=== PATIENT | male | born 1945 | race Caucasian/White ===

== ENCOUNTER 2018-09-05 11:19 | Inpatient (IN) | payer MEDICARE, MEDICAID ==
[2018-09-05 13:49] LABS: BASO % 0.4 % (0.0-2.0); EOS % 0.3 % (0.0-4.0); HEMOGLOBIN 13.4 g/dL (12.0-18.0); LYMPH # 0.9 K/uL (1.0-4.3); LYMPH % 14.6 % (20.0-40.0); MEAN CELL VOLUME 90.9 fL (80.0-94.0); MEAN CORPUSCULAR HEMOGLOBIN 31.3 pg (27.0-31.0); MEAN CORPUSCULAR HGB CONC 34.5 g/dL (33.0-37.0); MEAN PLATELET VOLUME 8.5 fL (7.2-11.7); MONO # 0.3 K/uL (0.0-0.8); MONO % 4.3 % (0.0-10.0); NEUT # 4.7 K/uL (1.8-7.0); NEUT % 80.4 % (50.0-75.0); NRBC % 0.1 % (0.0-2.0); RBC 4.28 Mil/uL (4.40-5.90); RED CELL DISTRIBUTION WIDTH 13.8 % (11.5-14.5); WHITE BLOOD COUNT 5.9 K/uL (4.8-10.8)
[2018-09-05 13:51] LABS: SQUAMOUS EPITHIAL < 1 /hpf (0-5); URINE BACTERIA RARE (<OCC); URINE BILIRUBIN NEGATIVE (NEGATIVE); URINE BLOOD 1+ (NEGATIVE); URINE CLARITY Clear (Clear); URINE COLOR Yellow (YELLOW); URINE GLUCOSE (UA) NORMAL (Normal); URINE LEUKOCYTE ESTERASE NEG Leu/uL (Negative); URINE PROTEIN NEGATIVE (NEGATIVE); URINE UROBILINOGEN NORMAL mg/dL (0.2-1.0)
[2018-09-05 13:57] LABS: INR 1.1
[2018-09-05 14:01] LABS: ALB/GLOB RATIO 1.2 (1.0-2.1); ALBUMIN 4.3 g/dL (3.5-5.0); ALT/SGPT 19 U/L (21-72); AST/SGOT 27 U/L (17-59); BLOOD UREA NITROGEN 18 mg/dL (9-20); CALCIUM 10.1 mg/dl (8.6-10.4); GFR NON-AFRICAN AMERICAN > 60; LIPASE 113 U/L (23-300)
--- NOTE | 2018-09-05 14:25 | CT ---
Date of service: 09/05/2018 PROCEDURE: CT HEAD WITHOUT CONTRAST. HISTORY: AMS COMPARISON: None available. TECHNIQUE: Axial computed tomography images were obtained through the head/brain without intravenous contrast. Radiation dose: Total exam DLP = 984.79 mGy-cm. This CT exam was performed using one or more of the following dose reduction techniques: Automated exposure control, adjustment of the mA and/or kV according to patient size, and/or use of iterative reconstruction technique. FINDINGS: Streak artifact obscures evaluation of the skull base. HEMORRHAGE: No intracranial hemorrhage. BRAIN: Diffuse atrophy with prominence of the ventricles and sulci noted. No mass effect or edema. Intracranial atherosclerosis. Bilateral basal ganglia calcifications. Scattered moderate to severe periventricular and subcortical white matter hypodensities, which are nonspecific, but often seen with chronic microvascular ischemic disease. Please note that MRI with diffusion imaging is more sensitive in the detection of acute ischemic event. VENTRICLES: No hydrocephalus. Cavum septum pellucidum, anatomic variant. CALVARIUM: Unremarkable. PARANASAL SINUSES: Unremarkable as visualized. No significant inflammatory changes. MASTOID AIR CELLS: Unremarkable as visualized. No inflammatory changes. OTHER FINDINGS: None. IMPRESSION: Generalized atrophy. Moderate to severe scattered nonspecific white matter changes.
--- NOTE | 2018-09-05 14:45 | RAD ---
Date of service: 09/05/2018 PROCEDURE: CHEST RADIOGRAPH, 1 VIEW HISTORY: AMS COMPARISON: None available. FINDINGS: LUNGS: The lungs are well inflated. There is confluent airspace disease in the right lower lobe. There is subsegmental atelectasis in the left lower lobe. PLEURA: No pneumothorax or pleural effusion. CARDIOVASCULAR: The heart is normal in size. No aortic atherosclerotic calcifications present. OSSEOUS STRUCTURES: Within normal limits for the patient's age. VISUALIZED UPPER ABDOMEN: Normal. OTHER FINDINGS: None. IMPRESSION: Confluent airspace disease in the right lower lobe could represent atelectasis/pneumonia.
[2018-09-05] MEDS ORDERED: cefTRIAXone IV 1 gm in Dextros 50 ML IV STA (15:02)
[2018-09-05] MEDS ORDERED: Azithromycin 500mg/250ML NS 500 MG/250 ML BAG IV STA (15:02)
--- NOTE | 2018-09-05 15:14 | CP.PCM.HP ---
History of Present Illness - History of Present Illness History of Present Illness: Medicine Note for Dr. Stephens's Service This is a 73 year old male with PMHx of Alzheimer's Dementia who is brought in by niece for change in mental status. As per niece, Celi, she was been taking care of her uncle since October 2017. Throughout this time, patient has become more altered, combative, aggressive, he would urinate and defecate on himself and smear it along garcia or on furniture. Both nieces Celina and Celi have tried to have him placed in a laborer marine terminal care facility but they have not been able to arrange placement. Patient has been more altered than usual which is why he was brought in. Patient is not oriented to person, place or time. Answered all ROS as negative. PMHx: As noted above PSHx: unknown Meds: Pending nilynn Patrick to bring medications All: NKDA SHx: Unknown FHx: Unknown PMD: Doctor in [place] Present on Admission - Present on Admission Any Indicators Present on Admission: No Past Patient History - Past Social History Smoking Status: Former Smoker - NEUROLOGICAL Hx Alzheimer's Disease: Yes Hx Dementia: Yes - GASTROINTESTINAL Hx Gastroesophageal Reflux: Yes - GENITOURINARY/GYNECOLOGICAL Hx Prostate Cancer: Yes - PSYCHIATRIC Hx Substance Use: No Meds Allergies/Adverse Reactions: Allergies Allergy/AdvReac Type Severity Reaction Status Date / Time No Known Allergies Allergy Verified 09/05/18 11:40 Physical Exam - Constitutional Appears: No Acute Distress - Head Exam Head Exam: ATRAUMATIC, NORMAL INSPECTION, NORMOCEPHALIC - Eye Exam Eye Exam: EOMI, Normal appearance, PERRL. absent: Nystagmus, Scleral icterus Pupil Exam: NORMAL ACCOMODATION - ENT Exam ENT Exam: Mucous Membranes Moist - Neck Exam Neck exam: Positive for: Normal Inspection - Respiratory Exam Respiratory Exam: Decreased Breath Sounds (RLL), NORMAL BREATHING PATTERN - Cardiovascular Exam Cardiovascular Exam: REGULAR RHYTHM, +S1, +S2. absent: Diastolic murmur, Systolic Murmur - GI/Abdominal Exam GI & Abdominal Exam: Normal Bowel Sounds, Soft. absent: Distended, Tenderness - Extremities Exam Extremities exam: Positive for: normal inspection, pedal pulses present. Negative for: pedal edema, tenderness - Neurological Exam Neurological exam: Alert, CN II-XII Intact - Psychiatric Exam Psychiatric exam: Normal Affect, Normal Mood - Skin Skin Exam: Dry, Intact, Normal Color, Warm Results - Vital Signs Recent Vital Signs: Last Vital Signs Temp 98.9 F 09/05/18 11:36 Pulse 63 09/05/18 11:36 Resp 20 09/05/18 11:36 BP 173/89 H 09/05/18 11:36 Pulse Ox 98 09/05/18 11:36 - Labs Result Diagrams: 09/05/18 13:45 09/05/18 13:45 Labs: Laboratory Results - last 24 hr 09/05/18 09/05/18 09/05/18 12:35 13:45 13:45 WBC 5.9 RBC 4.28 L Hgb 13.4 Hct 38.8 MCV 90.9 MCH 31.3 H MCHC 34.5 RDW 13.8 Plt Count 185 MPV 8.5 Neut % (Auto) 80.4 H Lymph % (Auto) 14.6 L [place] % (Auto) 4.3 Eos % (Auto) 0.3 Baso % (Auto) 0.4 Neut # (Auto) 4.7 Lymph # (Auto) 0.9 L [place] # (Auto) 0.3 Eos # (Auto) 0.0 Baso # (Auto) 0.0 PT 12.0 INR 1.1 APTT 35.0 H Sodium Potassium Chloride Carbon Dioxide Anion Gap BUN Creatinine Est GFR ( Amer) Est GFR (Non-Af Amer) POC Glucose (mg/dL) 110 Random Glucose Calcium Total Bilirubin AST ALT Alkaline Phosphatase Troponin I Total Protein Albumin Globulin Albumin/Globulin Ratio Lipase Urine Color Urine Clarity Urine pH Ur Specific [place] Urine Protein Urine Glucose (UA) Urine Ketones Urine Blood Urine Nitrate Urine Bilirubin Urine Urobilinogen Ur Leukocyte Esterase Urine WBC (Auto) Urine RBC (Auto) Ur Squamous Epith Cells Urine Bacteria 09/05/18 09/05/18 13:45 13:45 WBC RBC Hgb Hct MCV MCH MCHC RDW Plt Count MPV Neut % (Auto) Lymph % (Auto) [place] % (Auto) Eos % (Auto) Baso % (Auto) Neut # (Auto) Lymph # (Auto) [place] # (Auto) Eos # (Auto) Baso # (Auto) PT INR APTT Sodium 140 Potassium 3.9 Chloride 100 Carbon Dioxide 29 Anion Gap 14 BUN 18 Creatinine 0.6 L Est GFR ( Amer) > 60 Est GFR (Non-Af Amer) > 60 POC Glucose (mg/dL) Random Glucose 111 H Calcium 10.1 Total Bilirubin 0.6 AST 27 ALT 19 L Alkaline Phosphatase 51 Troponin I < 0.0120 Total Protein 7.9 Albumin 4.3 Globulin 3.7 Albumin/Globulin Ratio 1.2 Lipase 113 Urine Color Yellow Urine Clarity Clear Urine pH 6.0 Ur Specific [place] 1.018 Urine Protein Negative Urine Glucose (UA) Normal Urine Ketones Trace Urine Blood 1+ H Urine Nitrate Negative Urine Bilirubin Negative Urine Urobilinogen Normal Ur Leukocyte Esterase Neg Urine WBC (Auto) 1 Urine RBC (Auto) 9 H Ur Squamous Epith Cells < 1 Urine Bacteria Rare Assessment & Plan - Assessment and Plan (Free Text) Plan: Right Lower Lobe Pneumonia Imaging: - CXR: noted RLL PNA Management: - Blood and Urine cultures ordered - Procal, lactic acid, and rapid flu ordered - Rocephin and Azithromycin daily, Florastor BID Alzheimer's Dementia -- Patient seen by Neurologist in [place] - Started on medications (waiting for family to bring in medications) Acute AMS More than baseline, likely 2/2 to Pneumonia Imaging: - EKG: NSR 69 BPM, LVH, no ST changes, no AV block noted - Head CT: Generalized atrophy. Moderate to severe scattered nonspecific white matter changes. Prophylactic Measures - GI PPX: Protonix daily - DVT PPX: SCDs, Lovenox daily - PT/ OT - Case management for [employer] marine [employer] placement as family is unable to take care for patient any more Disposition: Abx course. Will speak with case management for [employer]orer marine terminal placement as family is unable to continue providing care for patient. Ayse Amaya Dr., DO, PGY2
--- NOTE | 2018-09-05 15:37 | C.PDOC ---
History Of Present Illness 73 y/o male,w/PMhx of Alzheimer's and dementia, presents to the ER for evaluation of dizziness and chest pain which has been present for the past 3 days. Patient is also complaining of some lower abdominal pain. As per niece, patient has been living with her since October 2017. She notes that patient has become more confused recently. She states that he tried to have bm in the sink and he tried to brush his teeth with toilet water. She reports that he has been "sticking his finger" into his rectum and he has been smearing his diapers across the wall. Denies having fever,chills, SOB nausea,vomiting, and diarrhea. Time Seen by Provider: 09/05/18 13:10 Chief Complaint (Nursing): Medical Clearance History Per: Patient, Family (niece) History/Exam Limitations: no limitations Onset/Duration Of Symptoms: Days Current Symptoms Are (Timing): Still Present Severity: Moderate Past Medical History Reviewed: Historical Data, Nursing Documentation, Vital Signs Vital Signs: Last Vital Signs Temp 98.9 F 09/05/18 11:36 Pulse 63 09/05/18 11:36 Resp 20 09/05/18 11:36 BP 173/89 H 09/05/18 11:36 Pulse Ox 98 09/05/18 11:36 Primary Care Provider: Non [facility] Provider, - Medical History PMH: Alzheimer's Disease, Dementia Surgical History: No Surg Hx Family History: States: No Known Family Hx - Social History Hx Alcohol Use: No Hx Substance Use: No - Immunization History Hx Tetanus Toxoid Vaccination: Yes Hx Influenza Vaccination: Yes Hx Pneumococcal Vaccination: Yes Review Of Systems Except As Marked, All Systems Reviewed And Found Negative. Constitutional: Negative for: Fever, Chills Cardiovascular: Positive for: Chest Pain Gastrointestinal: Positive for: Abdominal Pain. Negative for: Nausea, Vomiting, Diarrhea Neurological: Positive for: Dizziness. Negative for: Headache Physical Exam - Physical Exam Appears: Non-toxic, No Acute Distress, Confused (mildly confused), Other (awake,alert,orientedx3) Skin: Normal Color, Warm, Dry Head: Atraumatic, Normacephalic Eye(s): bilateral: Normal Inspection, PERRL, EOMI Nose: Normal Oral Mucosa: Moist Neck: Supple Chest: Symmetrical Cardiovascular: Rhythm Regular Respiratory: Normal Breath Sounds, No Rales, No Rhonchi, No Wheezing Gastrointestinal/Abdominal: Soft, Tenderness (mild diffuse tenderness to deep palpation), No Guarding, No Rebound Neurological/Psych: Oriented x3, Normal Speech, Other (pt is mildly confused) ED Course And Treatment - Laboratory Results Result Diagrams: 09/12/18 07:43 09/12/18 07:43 Lab Results: PT 12.0 SECONDS (9.7-12.2) 09/05/18 13:45 INR 1.1 09/05/18 13:45 APTT 35.0 SECONDS (21-34) H 09/05/18 13:45 Troponin I < 0.0120 ng/mL (0.00-0.120) 09/05/18 13:45 Total Bilirubin 0.6 mg/dL (0.2-1.3) 09/05/18 13:45 AST 27 U/L (17-59) 09/05/18 13:45 ALT 19 U/L (21-72) L 09/05/18 13:45 Alkaline Phosphatase 51 U/L (38-126) 09/05/18 13:45 Total Protein 7.9 g/dL (6.3-8.3) 09/05/18 13:45 Albumin 4.3 g/dL (3.5-5.0) 09/05/18 13:45 Globulin 3.7 gm/dL (2.2-3.9) 09/05/18 13:45 Albumin/Globulin Ratio 1.2 (1.0-2.1) 09/05/18 13:45 Lipase 113 U/L (23-300) 09/05/18 13:45 Urine Color Yellow (YELLOW) 09/05/18 13:45 Urine Clarity Clear (Clear) 09/05/18 13:45 Urine pH 6.0 (5.0-8.0) 09/05/18 13:45 Ur Specific [place] 1.018 (1.003-1.030) 09/05/18 13:45 Urine Protein Negative mg/dL (NEGATIVE) 09/05/18 13:45 Urine Glucose (UA) Normal mg/dL (Normal) 09/05/18 13:45 Urine Ketones Trace mg/dL (NEGATIVE) 09/05/18 13:45 Urine Blood 1+ (NEGATIVE) H 09/05/18 13:45 Urine Nitrate Negative (NEGATIVE) 09/05/18 13:45 Urine Bilirubin Negative (NEGATIVE) 09/05/18 13:45 Urine Urobilinogen Normal mg/dL (0.2-1.0) 09/05/18 13:45 Ur Leukocyte Esterase Neg [place]/uL (Negative) 09/05/18 13:45 Urine WBC (Auto) 1 /hpf (0-5) 09/05/18 13:45 Urine RBC (Auto) 9 /hpf (0-3) H 09/05/18 13:45 Ur Squamous Epith Cells < 1 /hpf (0-5) 09/05/18 13:45 Urine Bacteria Rare (<OCC) 09/05/18 13:45 ECG: Interpreted By Me, Viewed By Me ECG Rhythm: Sinus Rhythm Interpretation Of ECG: NSR with LVH and no ST elevations Rate From EC O2 Sat by Pulse Oximetry: 98 (RA) Pulse Ox Interpretation: Normal - Other Rad CXR X-Ray: Viewed By Me, Read By Radiologist Interpretation: Date of service: 09/05/2018. PROCEDURE: CHEST RADIOGRAPH, 1 VIEW. HISTORY: AMS. COMPARISON: None available. FINDINGS: LUNGS: The lungs are well inflated. There is confluent airspace disease in the right lower lobe. There is subsegmental atelectasis in the left lower lobe. PLEURA: No pneumothorax or pleural effusion. CARDIOVASCULAR: The heart is normal in size. No aortic atherosclerotic calcifications present. OSSEOUS STRUCTURES: Within normal limits for the patient's age. VISUALIZED UPPER ABDOMEN: Normal. OTHER FINDINGS: None. IMPRESSION: Confluent airspace disease in the right lower lobe could represent atelectasis/pneumonia. - CT Scan/US CT-Head Other Rad Studies (CT/US): Read By Radiologist, Radiology Report Reviewed CT/US Interpretation: Date of service: 09/05/2018. PROCEDURE: CT HEAD WITHOUT CONTRAST. HISTORY: AMS. COMPARISON: None available. TECHNIQUE: Axial computed tomography images were obtained through the head/brain without intravenous contrast. Radiation dose: Total exam DLP = 984.79 mGy-cm. This CT exam was performed using one or more of the following dose reduction techniques: Automated exposure control, adjustment of the mA and/or kV according to patient size, and/or use of iterative reconstruction technique. FINDINGS: Streak artifact obscures evaluation of the skull base. HEMORRHAGE: No intracranial hemorrhage. BRAIN: Diffuse atrophy with prominence of the ventricles and sulci noted. No mass effect or edema. Intracranial atherosclerosis. Bilateral basal ganglia calcifications. Scattered moderate to severe periventricular and subcortical white matter hypodensities, which are nonspecific, but often seen with chronic microvascular ischemic disease. Please note that MRI with diff usion imaging is more sensitive in the detection of acute ischemic event. VENTRICLES: No hydrocephalus. Cavum septum pellucidum, anatomic variant. CALVARIUM: Unremarkable. PARANASAL SINUSES: Unremarkable as visualized. No significant inflammatory changes. MASTOID AIR CELLS: Unremarkable as visualized. No inflammatory changes. OTHER FINDINGS: None. IMPRESSION: Generalized atrophy. Moderate to severe scattered nonspecific white matter changes. Medical Decision Making Medical Decision Making: Plan: --Labs --EKG --CXR --CT-Head --Urinalysis --Urine Culture --Blood Culture --Zithromax IV --Rocephin IV Updates: 15:50 Case discussed with . Patient will be admitted under the service of . Disposition - Disposition Disposition: HOSPITALIZED Disposition Time: 15:50 Condition: STABLE - POA Present On Arrival: None - Clinical Impression Clinical Impression: Dementia, Pneumonia - Scribe Statement The provider has reviewed the documentation as recorded by the Sepidehibe Juliana Crook Provider Attestation: All medical record entries made by the Scribe were at my direction and personally dictated by me. I have reviewed the chart and agree that the record accurately reflects my personal performance of the history, physical exam, medical decision making, and the department course for this patient. I have also personally directed, reviewed, and agree with the discharge instructions and disposition.
[2018-09-05] MEDS ORDERED: Azithromycin 500mg/250ML NS 500 MG/250 ML BAG IVPB ONE (16:51)
[2018-09-05] MEDS: Saccharomyces Boulardi 250 mg Cap PO SCH (18:40)
[2018-09-06 07:29] LABS: BASO % 0.3 % (0.0-2.0); EOS # 0.1 K/uL (0.0-0.7); HEMOGLOBIN 13.4 g/dL (12.0-18.0); LYMPH # 1.1 K/uL (1.0-4.3); LYMPH % 18.5 % (20.0-40.0); MEAN CELL VOLUME 91.3 fL (80.0-94.0); MEAN CORPUSCULAR HEMOGLOBIN 30.8 pg (27.0-31.0); MEAN CORPUSCULAR HGB CONC 33.8 g/dL (33.0-37.0); MEAN PLATELET VOLUME 8.4 fL (7.2-11.7); MONO # 0.3 K/uL (0.0-0.8); NEUT # 4.3 K/uL (1.8-7.0); NEUT % 74.2 % (50.0-75.0); NRBC % 0.1 % (0.0-2.0); RBC 4.35 Mil/uL (4.40-5.90); RED CELL DISTRIBUTION WIDTH 13.5 % (11.5-14.5); WHITE BLOOD COUNT 5.9 K/uL (4.8-10.8)
[2018-09-06 07:42] LABS: ALB/GLOB RATIO 1.2 (1.0-2.1); ALBUMIN 4.1 g/dL (3.5-5.0); ALT/SGPT 20 U/L (21-72); AST/SGOT 28 U/L (17-59); BLOOD UREA NITROGEN 15 mg/dL (9-20); CALCIUM 9.7 mg/dl (8.6-10.4); GFR NON-AFRICAN AMERICAN > 60
[2018-09-06] MEDS: Pantoprazole 40 mg EC Tab PO SCH (09:41)
[2018-09-06] MEDS: Enoxaparin 40 mg Syringe SC SCH (09:41)
[2018-09-06] MEDS: Azithromycin 500 MG in Sodium Chloride 0.9% 250 ML IVPB SCH (09:41)
[2018-09-06] MEDS: Saccharomyces Boulardi 250 mg Cap PO SCH ×2 (09:41→18:20)
[2018-09-06] MEDS: cefTRIAXone IV 1 gm in Dextros 50 ML IVPB SCH (11:51)
--- NOTE | 2018-09-06 13:12 | CP.PCM.PN ---
Subjective - Date & Time of Evaluation Date of Evaluation: 09/06/18 Time of Evaluation: 13:11 - Subjective Subjective: Progress note for Dr. Stephens. Patient seen and examined at bedside. Patient is resting in bed comfortably. Has no complaints at this time. Denies fever, chills, shortness of breath, chest pain, cough, headache, nausea, vomiting, diarrhea, constipation. Objective - Vital Signs/Intake and Output Vital Signs (last 24 hours): Temp Pulse Resp BP Pulse Ox 97.9 F 86 20 171/89 H 96 09/06/18 08:00 09/06/18 08:00 09/06/18 08:00 09/06/18 08:00 09/06/18 08:00 Intake and Output: 09/06/18 09/06/18 06:59 18:59 Intake Total 320 Balance 320 - Medications Medications: Current Medications Acetaminophen (Tylenol 325mg Tab) 650 mg PO Q6 PRN PRN Reason: Fever >100.4 F Clonidine HCl (Catapres) 0.3 mg PO BID [facility] Last Admin: 09/06/18 11:55 Dose: 0.3 mg Enoxaparin Sodium (Lovenox) 40 mg SC DAILY [facility] Last Admin: 09/06/18 09:41 Dose: 40 mg Azithromycin 500 mg/ Sodium (Chloride) 250 mls @ 250 mls/hr IVPB DAILY [facility]; Protocol Last Admin: 09/06/18 09:41 Dose: 250 mls/hr Ceftriaxone Sodium (Rocephin Iv 1 Gm Duplex) 50 mls @ 100 mls/hr IVPB DAILY [facility]; Protocol Last Admin: 09/06/18 11:51 Dose: 100 mls/hr Pantoprazole Sodium (Protonix Ec Tab) 40 mg PO DAILY [facility] Last Admin: 09/06/18 09:41 Dose: 40 mg Saccharomyces Boulardii (Florastor) 250 mg PO BID [facility] Last Admin: 09/06/18 09:41 Dose: 250 mg - Labs Labs: 09/06/18 07:04 09/06/18 07:04 PT 12.0 SECONDS (9.7-12.2) 09/05/18 13:45 INR 1.1 09/05/18 13:45 APTT 35.0 SECONDS (21-34) H 09/05/18 13:45 - Constitutional Appears: Non-toxic, No Acute Distress - Head Exam Head Exam: ATRAUMATIC, NORMOCEPHALIC - Eye Exam Eye Exam: EOMI, Normal appearance, PERRL - ENT Exam ENT Exam: Normal Exam - Neck Exam Neck Exam: Full ROM, Normal Inspection - Respiratory Exam Respiratory Exam: Decreased Breath Sounds (right lower lung field), NORMAL BREATHING PATTERN. absent: Rales, Rhonchi, Wheezes, Respiratory Distress - Cardiovascular Exam Cardiovascular Exam: REGULAR RHYTHM, +S1, +S2 - GI/Abdominal Exam GI & Abdominal Exam: Soft, Normal Bowel Sounds. absent: Firm, Guarding, Rigid, Tenderness, Rebound - Neurological Exam Neurological Exam: Alert, Awake, CN II-XII Intact Neuro motor strength exam: Left Upper Extremity: 5, Right Upper Extremity: 5, Left Lower Extremity: 5, Right Lower Extremity: 5 Additional comments: Awake, alert, oriented x1 (person) - Psychiatric Exam Psychiatric exam: Normal Affect, Normal Mood - Skin Skin Exam: Dry, Normal Color, Warm Assessment and Plan - Assessment and Plan (Free Text) Plan: 73 year old male with PMHx of Alzheimer's and HTN presents with increased aggression and admitted for RLL PNA. Right Lower Lobe Pneumonia Imaging: - CXR: noted RLL PNA Management: - Blood and Urine cultures ordered - Procal, lactic acid, and rapid flu ordered - Rocephin and Azithromycin daily, Florastor BID started 09/05/18 Alzheimer's Dementia -- Patient seen by Neurologist in [place] - Started on medications (waiting for family to bring in non-formulary medications- memantine) - Lexapro 10mg PO HS - Denepezil 10mg PO HS - Risperidone 0.25mg PO HS Acute AMS More than baseline, likely 2/2 to Pneumonia Imaging: - EKG: NSR 69 BPM, LVH, no ST changes, no AV block noted - Head CT: Generalized atrophy. Moderate to severe scattered nonspecific white matter changes. HTN - Clonidine 0.3mg PO BID - Monitor vitals Prophylactic Measures - GI PPX: Protonix daily - DVT PPX: SCDs, Lovenox daily - PT/ OT - Case management for ad terminal makeup operator placement as family is unable to take care for patient any more Disposition: Continue antibiotics. Will need ad terminal makeup operator placement as family is unable to continue providing care for patient. D/W Dr. Stephens. Randi Torre, PGY-1
--- NOTE | 2018-09-07 07:55 | CP.PCM.PN ---
Subjective - Date & Time of Evaluation Date of Evaluation: 09/07/18 Time of Evaluation: 07:55 - Subjective Subjective: Progress note for Dr. Stephens. Patient seen and examined at bedside. Complaining of generalized body pain, otherwise feels better. Denies trauma, fever, chills, shortness of breath, chest pain, cough, headache, nausea, vomiting, diarrhea, constipation. Objective - Vital Signs/Intake and Output Vital Signs (last 24 hours): Temp Pulse Resp BP Pulse Ox 97.7 F 63 20 130/75 94 L 09/07/18 07:00 09/07/18 07:00 09/07/18 07:00 09/07/18 07:00 09/07/18 07:00 Intake and Output: 09/07/18 09/07/18 06:59 18:59 Intake Total 200 Balance 200 - Medications Medications: Current Medications Acetaminophen (Tylenol 325mg Tab) 650 mg PO Q6 PRN PRN Reason: Fever >100.4 F Acetaminophen (Tylenol 325mg Tab) 650 mg PO STAT STA Stop: 09/07/18 07:54 Clonidine HCl (Catapres) 0.3 mg PO BID [facility] Last Admin: 09/06/18 17:39 Dose: Not Given Donepezil HCl (Aricept) 10 mg PO HS [facility] Last Admin: 09/06/18 21:08 Dose: 10 mg Enoxaparin Sodium (Lovenox) 40 mg SC DAILY [facility] Last Admin: 09/06/18 09:41 Dose: 40 mg Escitalopram Oxalate (Lexapro) 10 mg PO DAILY [facility] Last Admin: 09/06/18 17:14 Dose: 10 mg Azithromycin 500 mg/ Sodium (Chloride) 250 mls @ 250 mls/hr IVPB DAILY [facility]; Protocol Last Admin: 09/06/18 09:41 Dose: 250 mls/hr Ceftriaxone Sodium (Rocephin Iv 1 Gm Duplex) 50 mls @ 100 mls/hr IVPB DAILY [facility]; Protocol Last Admin: 09/06/18 11:51 Dose: 100 mls/hr Memantine (Namenda) 10 mg PO BID [facility] Pantoprazole Sodium (Protonix Ec Tab) 40 mg PO DAILY [facility] Last Admin: 09/06/18 09:41 Dose: 40 mg Risperidone (Risperdal Tab) 0.25 mg PO HS [facility] Last Admin: 09/06/18 21:08 Dose: 0.25 mg Saccharomyces Boulardii (Florastor) 250 mg PO BID [facility] Last Admin: 09/06/18 18:20 Dose: 250 mg - Labs Labs: 09/06/18 07:04 09/06/18 07:04 PT 12.0 SECONDS (9.7-12.2) 09/05/18 13:45 INR 1.1 09/05/18 13:45 APTT 35.0 SECONDS (21-34) H 09/05/18 13:45 - Additional Findings Additional findings: - Constitutional Appears: Non-toxic, No Acute Distress - Head Exam Head Exam: ATRAUMATIC, NORMOCEPHALIC - Eye Exam Eye Exam: EOMI, Normal appearance, PERRL - ENT Exam ENT Exam: Normal Exam - Neck Exam Neck Exam: Full ROM, Normal Inspection - Respiratory Exam Respiratory Exam: Clear to auscultation, NORMAL BREATHING PATTERN. absent: Rales, Rhonchi, Wheezes, Respiratory Distress - Cardiovascular Exam Cardiovascular Exam: REGULAR RHYTHM, +S1, +S2 - GI/Abdominal Exam GI & Abdominal Exam: Soft, Normal Bowel Sounds. absent: Firm, Guarding, Rigid, Tenderness, Rebound - Neurological Exam Neurological Exam: Alert, Awake, CN II-XII Intact, moves all extremities Awake, alert, oriented x2 (person, place) - Psychiatric Exam Psychiatric exam: Normal Affect, Normal Mood - Skin Skin Exam: Dry, Normal Color, Warm Assessment and Plan - Assessment and Plan (Free Text) Plan: 73 year old male with PMHx of Alzheimer's and HTN presents with increased aggression and admitted for RLL PNA. Right Lower Lobe Pneumonia Imaging: - CXR: noted RLL PNA Management: - Blood and Urine cultures ordered - Procal, lactic acid, and rapid flu ordered - Rocephin and Azithromycin daily, Florastor BID started 09/05/18 Alzheimer's Dementia -- Patient seen by Neurologist in [place] - Started on medications (waiting for family to bring in non-formulary medi cations- memantine) - Lexapro 10mg PO HS - Denepezil 10mg PO HS - Risperidone 0.25mg PO HS Acute AMS More than baseline, likely 2/2 to Pneumonia Imaging: - EKG: NSR 69 BPM, LVH, no ST changes, no AV block noted - Head CT: Generalized atrophy. Moderate to severe scattered nonspecific white matter changes. HTN - Clonidine 0.3mg PO BID - Monitor vitals Prophylactic Measures - GI PPX: Protonix daily - DVT PPX: SCDs, Lovenox daily - PT/ OT - Case management for ferry terminal agent placement as family is unable to take care for patient any more Disposition: Continue antibiotics. Will need [place] [facility] placement as family is unable to continue providing care for patient. D/W Dr. Stephens. Randi Torre, PGY-1
[2018-09-07 08:27] LABS: BASO % 0.6 % (0.0-2.0); EOS # 0.1 K/uL (0.0-0.7); EOS % 1.8 % (0.0-4.0); LYMPH # 1.3 K/uL (1.0-4.3); LYMPH % 30.7 % (20.0-40.0); MEAN CELL VOLUME 91.3 fL (80.0-94.0); MEAN CORPUSCULAR HEMOGLOBIN 31.2 pg (27.0-31.0); MEAN CORPUSCULAR HGB CONC 34.2 g/dL (33.0-37.0); MEAN PLATELET VOLUME 8.5 fL (7.2-11.7); MONO # 0.3 K/uL (0.0-0.8); MONO % 6.8 % (0.0-10.0); NEUT # 2.6 K/uL (1.8-7.0); NEUT % 60.1 % (50.0-75.0); NRBC % 0.2 % (0.0-2.0); RBC 4.17 Mil/uL (4.40-5.90); RED CELL DISTRIBUTION WIDTH 13.4 % (11.5-14.5); WHITE BLOOD COUNT 4.3 K/uL (4.8-10.8)
[2018-09-07 08:34] LABS: ALB/GLOB RATIO 1.3 (1.0-2.1); ALBUMIN 3.9 g/dL (3.5-5.0); ALT/SGPT 19 U/L (21-72); AST/SGOT 31 U/L (17-59); BLOOD UREA NITROGEN 22 mg/dL (9-20); CALCIUM 9.4 mg/dl (8.6-10.4); GFR NON-AFRICAN AMERICAN > 60
[2018-09-07] MEDS: cefTRIAXone IV 1 gm in Dextros 50 ML IVPB SCH (09:13)
[2018-09-07] MEDS ORDERED: Potassium Chloride 20 mEq/15 ml LIQ UD PO ONE (09:46)
[2018-09-07] MEDS: Saccharomyces Boulardi 250 mg Cap PO SCH ×2 (10:22→17:38)
[2018-09-07] MEDS: Pantoprazole 40 mg EC Tab PO SCH (10:22)
[2018-09-07] MEDS: Enoxaparin 40 mg Syringe SC SCH (10:23)
[2018-09-07] MEDS: Azithromycin 500 MG in Sodium Chloride 0.9% 250 ML IVPB SCH (10:24)
--- NOTE | 2018-09-08 00:56 | CP.PCM.PN ---
Subjective - Date & Time of Evaluation Date of Evaluation: 09/08/18 Time of Evaluation: 00:55 - Subjective Subjective: Progress note for Dr. Stephens. Patient seen and examined at bedside. No acute events overnight. Denies trauma, fever, chills, shortness of breath, chest pain, cough, headache, nausea, vomiting, diarrhea, constipation. Objective - Vital Signs/Intake and Output Vital Signs (last 24 hours): Temp Pulse Resp BP Pulse Ox 97.2 F L 62 20 120/74 97 09/07/18 15:00 09/07/18 17:50 09/07/18 15:00 09/07/18 17:50 09/07/18 15:00 - Medications Medications: Current Medications Acetaminophen (Tylenol 325mg Tab) 650 mg PO Q6 PRN PRN Reason: Fever >100.4 F Clonidine HCl (Catapres) 0.3 mg PO BID [facility] Last Admin: 09/07/18 17:41 Dose: 0.3 mg Donepezil HCl (Aricept) 10 mg PO HS [facility] Last Admin: 09/07/18 21:28 Dose: 10 mg Enoxaparin Sodium (Lovenox) 40 mg SC DAILY [facility] Last Admin: 09/07/18 10:23 Dose: 40 mg Escitalopram Oxalate (Lexapro) 10 mg PO DAILY [facility] Last Admin: 09/07/18 10:22 Dose: 10 mg Azithromycin 500 mg/ Sodium (Chloride) 250 mls @ 250 mls/hr IVPB DAILY [facility]; Protocol Last Admin: 09/07/18 10:24 Dose: 250 mls/hr Ceftriaxone Sodium (Rocephin Iv 1 Gm Duplex) 50 mls @ 100 mls/hr IVPB DAILY [facility] ; Protocol Last Admin: 09/07/18 09:13 Dose: 100 mls/hr Memantine (Namenda) 10 mg PO BID [facility] Last Admin: 09/07/18 17:38 Dose: 10 mg Pantoprazole Sodium (Protonix Ec Tab) 40 mg PO DAILY [facility] Last Admin: 09/07/18 10:22 Dose: 40 mg Risperidone (Risperdal Tab) 0.25 mg PO HS [facility] Last Admin: 09/07/18 21:27 Dose: 0.25 mg Saccharomyces Boulardii (Florastor) 250 mg PO BID [facility] Last Admin: 09/07/18 17:38 Dose: 250 mg - Labs Labs: 09/07/18 08:10 09/07/18 08:10 PT 12.0 SECONDS (9.7-12.2) 09/05/18 13:45 INR 1.1 09/05/18 13:45 APTT 35.0 SECONDS (21-34) H 09/05/18 13:45 - Constitutional Appears: Non-toxic, No Acute Distress - Head Exam Head Exam: ATRAUMATIC, NORMOCEPHALIC - Eye Exam Eye Exam: EOMI, Normal appearance, PERRL - ENT Exam ENT Exam: Normal Exam - Neck Exam Neck Exam: Full ROM, Normal Inspection - Respiratory Exam Respiratory Exam: Clear to auscultation, NORMAL BREATHING PATTERN. absent: Rales, Rhonchi, Wheezes, Respiratory Distress - Cardiovascular Exam Cardiovascular Exam: REGULAR RHYTHM, +S1, +S2 - GI/Abdominal Exam GI & Abdominal Exam: Soft, Normal Bowel Sounds. absent: Firm, Guarding, Rigid, Tenderness, Rebound - Neurological Exam Neurological Exam: Alert, Awake, CN II-XII Intact, moves all extremities Awake, alert, oriented x2 (person, place) - Psychiatric Exam Psychiatric exam: Normal Affect, Normal Mood - Skin Skin Exam: Dry, Normal Color, Warm Assessment and Plan - Assessment and Plan (Free Text) Assessment: 73 year old male with PMHx of Alzheimer's and HTN presents with increased aggression and admitted for RLL PNA. Right Lower Lobe Pneumonia Imaging: - CXR: noted RLL PNA Management: - Blood and Urine cultures ordered - Procal, lactic acid, and rapid flu ordered - Rocephin and Azithromycin daily, Florastor BID started 09/05/18 Alzheimer's Dementia -- Patient seen by Neurologist in [place] - Started on medications (waiting for family to bring in non-formulary medications- memantine) - Lexapro 10mg PO HS - Denepezil 10mg PO HS - Risperidone 0.25mg PO HS Acute AMS More than baseline, likely 2/2 to Pneumonia Imaging: - EKG: NSR 69 BPM, LVH, no ST changes, no AV block noted - Head CT: Generalized atrophy. Moderate to severe scattered nonspecific white matter changes. HTN - Clonidine 0.3mg PO BID - Monitor vitals Prophylactic Measures - GI PPX: Protonix daily - DVT PPX: SCDs, Lovenox daily - PT/ OT - Case management for buttermaker continuous churn placement as family is unable to take care for patient any more Disposition: Continue antibiotics. Will need buttermaker continuous churn placement as family is unable to continue providing care for patient. D/W Dr. Stephens. Shashi Villanueva, PGY-1
[2018-09-08 07:25] LABS: BASO % 0.2 % (0.0-2.0); EOS # 0.1 K/uL (0.0-0.7); EOS % 2.3 % (0.0-4.0); HEMOGLOBIN 13.1 g/dL (12.0-18.0); LYMPH % 26.7 % (20.0-40.0); MEAN CELL VOLUME 90.9 fL (80.0-94.0); MEAN CORPUSCULAR HEMOGLOBIN 31.4 pg (27.0-31.0); MEAN CORPUSCULAR HGB CONC 34.5 g/dL (33.0-37.0); MEAN PLATELET VOLUME 8.6 fL (7.2-11.7); MONO # 0.3 K/uL (0.0-0.8); MONO % 8.7 % (0.0-10.0); NEUT # 2.4 K/uL (1.8-7.0); NEUT % 62.1 % (50.0-75.0); NRBC % 0.2 % (0.0-2.0); RBC 4.18 Mil/uL (4.40-5.90); RED CELL DISTRIBUTION WIDTH 13.8 % (11.5-14.5); WHITE BLOOD COUNT 3.8 K/uL (4.8-10.8)
[2018-09-08 07:29] LABS: ALB/GLOB RATIO 1.2 (1.0-2.1); ALBUMIN 3.6 g/dL (3.5-5.0); ALT/SGPT 20 U/L (21-72); AST/SGOT 24 U/L (17-59); BLOOD UREA NITROGEN 19 mg/dL (9-20); CALCIUM 9.5 mg/dl (8.6-10.4); GFR NON-AFRICAN AMERICAN > 60
[2018-09-08] MEDS: Saccharomyces Boulardi 250 mg Cap PO SCH ×2 (10:43→17:37)
[2018-09-08] MEDS: Pantoprazole 40 mg EC Tab PO SCH (10:43)
[2018-09-08] MEDS: Enoxaparin 40 mg Syringe SC SCH (10:43)
[2018-09-08] MEDS: cefTRIAXone IV 1 gm in Dextros 50 ML IVPB SCH (10:44)
[2018-09-08] MEDS: Azithromycin 500 MG in Sodium Chloride 0.9% 250 ML IVPB SCH (11:28)
--- NOTE | 2018-09-08 12:56 | PCM.RRT ---
UNDERWRITER SOLICITATION DIRECTOR Nurses Assessment - Situation Date: 09/08/18 Time UNDERWRITER SOLICITATION DIRECTOR was called: 12:45 UNDERWRITER SOLICITATION DIRECTOR Location:: Med/Surg - Constitutional Appears: Chronically Ill - Head Head Exam: ATRAUMATIC - Respiratory Exam Respiratory Exam: Clear to Ausculation Bilateral, NORMAL BREATHING PATTERN. absent: Rales, Rhonchi, Wheezes, Respiratory Distress - Cardiovascular Exam Cardiovascular Exam: REGULAR RHYTHM, +S1, +S2 - GI/Abdominal Exam GI & Abdominal Exam: Soft - Neurological Exam Neurological Exam: Altered. absent: Alert - Extremities Exam Extremities Exam: absent: Pedal Edema Plan - Assessment of Findings&Treatment Plan UNDERWRITER SOLICITATION DIRECTOR was called at 12:45pm for hypotension and altered mental status. The patient was found to be unresponsive; vitals were checked and BP was 78/44. Of note, patient's baseline mental status is talkative and awake, but has a hx of dementia. IV fluid bolus was started and patient placed in trendelenburgs. Repeat vitals were 76/84, O2 saturation was 97%, and glucose was 102. Patient was still unresponsive. Ordered ABG shock panel, CBC, CXR and Head CT. Held clonidine, lexapro, lovenox, aricept, namenda, and risperdal. Gave one dose of Narcan 0.4mg IVP to reverse effects of clonidine. Patient became more awake. Suspected seizure. Ordered Prolactin and discontinued rocephin and azithromycin. Consulted Neurology. Vitals started to improve, BP 93/53, 50HR, then increased to 121/65. Vitals were repeated prior to transfer to CT- BP 134/64 and HR 64. Patient was talking and awake during transfer, however, still confused and had no recollection of what had occurred. Patient's primary physcian, Dr. Stephens, was present during RR.
[2018-09-08 12:58] LABS: ARTERIAL BLOOD GAS HCO3 25.6 mmol/L (21-28); ARTERIAL BLOOD GAS O2 SAT 99.2 % (95-98); ARTERIAL BLOOD GAS PCO2 39 mm/Hg (35-45); ARTERIAL BLOOD GAS PH 7.42 (7.35-7.45); ARTERIAL BLOOD GAS PO2 98 mm/Hg (80-100); ARTERIAL BLOOD GAS TCO2 26.5 mmol/L (22-28)
[2018-09-08] MEDS ORDERED: Naloxone 0.4 mg/ml Inj (Adult) IVP ONE (13:15)
[2018-09-08 13:34] LABS: BASO % 0.6 % (0.0-2.0); EOS # 0.1 K/uL (0.0-0.7); EOS % 2.5 % (0.0-4.0); HEMOGLOBIN 11.3 g/dL (12.0-18.0); LYMPH # 1.1 K/uL (1.0-4.3); LYMPH % 25.6 % (20.0-40.0); MEAN CELL VOLUME 92.1 fL (80.0-94.0); MEAN CORPUSCULAR HEMOGLOBIN 30.9 pg (27.0-31.0); MEAN CORPUSCULAR HGB CONC 33.6 g/dL (33.0-37.0); MEAN PLATELET VOLUME 8.8 fL (7.2-11.7); MONO # 0.4 K/uL (0.0-0.8); MONO % 8.2 % (0.0-10.0); NEUT # 2.8 K/uL (1.8-7.0); NEUT % 63.1 % (50.0-75.0); NRBC % 0.4 % (0.0-2.0); RBC 3.64 Mil/uL (4.40-5.90); RED CELL DISTRIBUTION WIDTH 13.4 % (11.5-14.5); WHITE BLOOD COUNT 4.4 K/uL (4.8-10.8)
--- NOTE | 2018-09-08 14:15 | CT ---
Date of service: 09/08/2018 PROCEDURE: CT HEAD WITHOUT CONTRAST. HISTORY: AMS COMPARISON: Comparison made with CT scan brain 09/05/2018. TECHNIQUE: Axial computed tomography images were obtained through the head/brain without intravenous contrast. Radiation dose: Total exam DLP = 3541.59 mGy-cm. This CT exam was performed using one or more of the following dose reduction techniques: Automated exposure control, adjustment of the mA and/or kV according to patient size, and/or use of iterative reconstruction technique. FINDINGS: Study is limited by motion artifact. HEMORRHAGE: No acute parenchymal, subarachnoid or extra-axial hemorrhage. BRAIN: Moderate to significant diffuse and confluent chronic periventricular white matter ischemic changes seen extending peripherally into the deep white matter both cerebral hemispheres. There is also extension of these changes into the white matter tracts of both basal nuclei. Moderate to significant generalized volume loss VENTRICLES: No obstructive hydrocephalus. CALVARIUM: No acute calvarial fractures. PARANASAL SINUSES: Unremarkable as visualized. No significant inflammatory changes. MASTOID AIR CELLS: Unremarkable as visualized. No inflammatory changes. OTHER FINDINGS: Changes of bilateral cataract surgery again noted. IMPRESSION: The study is quite limited due to significant motion artifact. Moderate to significant chronic white matter ischemic changes with slight extension of these changes into the white matter tracts of both basal nuclei. Note that the possibility acute infarct not excluded Moderate to significant generalized volume loss
--- NOTE | 2018-09-08 14:25 | CP.PCM.CON ---
History of Present Illness - History of Present Illness History of Present Illness: Neurology Consult dictated. Patient is s/p rapid response, with history of rapid response, and now back to baseline. In light of severe dementia, epilepsy is always a p ossibility. Will recommend IV depakote 1000 mg now and 500 mg bid. EEG am MRI [place] in am. Thank you Dr. orellana Neurology Past Patient History - Past Social History Smoking Status: Former Smoker - NEUROLOGICAL Hx Alzheimer's Disease: Yes Hx Dementia: Yes - MUSCULOSKELETAL/RHEUMATOLOGICAL Hx Falls: No - GASTROINTESTINAL Hx Gastroesophageal Reflux: Yes - GENITOURINARY/GYNECOLOGICAL Hx Prostate Cancer: Yes - PSYCHIATRIC Hx Substance Use: No Meds Allergies/Adverse Reactions: Allergies Allergy/AdvReac Type Severity Reaction Status Date / Time No Known Allergies Allergy Verified 09/05/18 11:40 - Medications Medications: Current Medications Acetaminophen (Tylenol 325mg Tab) 650 mg PO Q6 PRN PRN Reason: Fever >100.4 F Last Admin: 09/08/18 10:44 Dose: 650 mg Clonidine HCl (Catapres) 0.3 mg PO BID [facility] Last Admin: 09/08/18 10:43 Dose: 0.3 mg Donepezil HCl (Aricept) 10 mg PO HS [facility] Last Admin: 09/07/18 21:28 Dose: 10 mg Enoxaparin Sodium (Lovenox) 40 mg SC DAILY [facility] Last Admin: 09/08/18 10:43 Dose: 40 mg Escitalopram Oxalate (Lexapro) 10 mg PO DAILY [facility] Last Admin: 09/08/18 10:43 Dose: 10 mg Ceftriaxone Sodium (Rocephin Iv 1 Gm Duplex) 50 mls @ 100 mls/hr IVPB DAILY [facility]; Protocol Last Admin: 09/08/18 10:44 Dose: 100 mls/hr Memantine (Namenda) 10 mg PO BID [facility] Last Admin: 09/08/18 10:44 Dose: 10 mg Pantoprazole Sodium (Protonix Ec Tab) 40 mg PO DAILY [facility] Last Admin: 09/08/18 10:43 Dose: 40 mg Risperidone (Risperdal Tab) 0.25 mg PO HS [facility] Last Admin: 09/07/18 21:27 Dose: 0.25 mg Saccharomyces Boulardii (Florastor) 250 mg PO BID [facility] Last Admin: 09/08/18 10:43 Dose: 250 mg Results - Vital Signs Recent Vital Signs: Last Vital Signs Temp 97.7 F 09/08/18 07:46 Pulse 56 L 09/08/18 12:33 Resp 20 09/08/18 12:33 BP 92/58 L 09/08/18 12:33 Pulse Ox 100 09/08/18 12:33 - Labs Result Diagrams: 09/08/18 13:24 09/08/18 07:00 Labs: Laboratory Results - last 24 hr 09/08/18 09/08/18 09/08/18 07:00 07:00 12:48 WBC 3.8 L RBC 4.18 L Hgb 13.1 Hct 37.9 MCV 90.9 MCH 31.4 H MCHC 34.5 RDW 13.8 Plt Count 151 MPV 8.6 Neut % (Auto) 62.1 Lymph % (Auto) 26.7 [place] % (Auto) 8.7 Eos % (Auto) 2.3 Baso % (Auto) 0.2 Neut # (Auto) 2.4 Lymph # (Auto) 1.0 [place] # (Auto) 0.3 Eos # (Auto) 0.1 Baso # (Auto) 0.0 Puncture Site pCO2 pO2 HCO3 ABG pH ABG Total CO2 ABG O2 Saturation ABG Base Excess Mitesh Test ABG Potassium Glucose Lactate Sodium 138 Potassium 3.8 Chloride 100 Carbon Dioxide 27 Anion Gap 15 BUN 19 Creatinine 0.8 Est GFR ( Amer) > 60 Est GFR (Non-Af Amer) > 60 POC Glucose (mg/dL) 102 Random Glucose 78 Calcium 9.5 Phosphorus 3.4 Magnesium 2.3 Total Bilirubin 0.6 AST 24 ALT 20 L Alkaline Phosphatase 40 Total Protein 6.7 Albumin 3.6 Globulin 3.1 Albumin/Globulin Ratio 1.2 Prolactin Arterial Blood Potassium 09/08/18 09/08/18 09/08/18 12:55 13:24 13:24 WBC 4.4 L RBC 3.64 L Hgb 11.3 L Hct 33.5 L MCV 92.1 MCH 30.9 MCHC 33.6 RDW 13.4 Plt Count 142 MPV 8.8 Neut % (Auto) 63.1 Lymph % (Auto) 25.6 [place] % (Auto) 8.2 Eos % (Auto) 2.5 Baso % (Auto) 0.6 Neut # (Auto) 2.8 Lymph # (Auto) 1.1 [place] # (Auto) 0.4 Eos # (Auto) 0.1 Baso # (Auto) 0.0 Puncture Site Rb pCO2 39 pO2 98 HCO3 25.6 ABG pH 7.42 ABG Total CO2 26.5 ABG O2 Saturation 99.2 H ABG Base Excess 0.8 Mitesh Test Na ABG Potassium 3.7 Glucose 81 Lactate 1.0 Sodium 137.0 Potassium Chloride 107.0 Carbon Dioxide Anion Gap BUN Creatinine Est GFR ( Amer) Est GFR (Non-Af Amer) POC Glucose (mg/dL) Random Glucose Calcium Phosphorus Magnesium Total Bilirubin AST ALT Alkaline Phosphatase Total Protein Albumin Globulin Albumin/Globulin Ratio Prolactin 75.2 H Arterial Blood Potassium 3.7
[2018-09-08] MEDS ORDERED: Divalproex 500 mg DR Tab PO STA ×2 (14:34→14:37)
--- NOTE | 2018-09-08 15:02 | RAD ---
Date of service: 09/08/2018 HISTORY: Rule out pneumonia COMPARISON: Comparison chest 5 8 19 TECHNIQUE: 1 view obtained. FINDINGS: LUNGS: Interval of improvement previously noted bibasilar atelectatic and or infiltrates however there is some minimal residual linear atelectasis and or scarring left lung base. PLEURA: No significant pleural effusion identified, no pneumothorax apparent. CARDIOVASCULAR: Aortic the atherosclerotic calcification present. Normal cardiac size. No pulmonary vascular congestion. OSSEOUS STRUCTURES: No significant abnormalities. VISUALIZED UPPER ABDOMEN: Normal. OTHER FINDINGS: None. IMPRESSION: Interval of improvement previously noted bibasilar atelectatic and or infiltrates however there is some minimal residual linear atelectasis and or scarring left lung base.
--- NOTE | 2018-09-08 16:17 | CARD ---
APPROVED REPORT Date of service: 09/05/2018 EKG Measurement Heart [id number] <Conclusion> Normal sinus rhythm Possible Left atrial enlargement Left ventricular hypertrophy Abnormal ECG
[2018-09-08] MEDS: Divalproex 500 mg DR Tab PO SCH (17:36)
--- NOTE | 2018-09-09 07:57 | CP.PCM.PN ---
Subjective - Date & Time of Evaluation Date of Evaluation: 09/09/18 Time of Evaluation: 07:57 - Subjective Subjective: Progress Note for Dr. Stephens's service Patient seen and examined at bedside. He is able to tell me his name, but cannot state the current year or month. He has no complaints currently. Family not present at bedside. Patient is on [employer] monitoring. Patient reportedly had an episode of hypotension and altered mental status yesterday, with suspected seizure yesterday. Objective - Vital Signs/Intake and Output Vital Signs (last 24 hours): Temp Pulse Resp BP Pulse Ox 98.1 F 57 L 20 145/75 97 09/09/18 00:21 09/09/18 00:21 09/09/18 00:21 09/09/18 00:21 09/09/18 00:21 Intake and Output: 09/09/18 09/09/18 06:59 18:59 Output Total 600 Balance -600 - Medications Medications: Current Medications Acetaminophen (Tylenol 325mg Tab) 650 mg PO Q6 PRN PRN Reason: Fever >100.4 F Last Admin: 09/08/18 10:44 Dose: 650 mg Clonidine HCl (Catapres) 0.3 mg PO BID [facility] Last Admin: 09/08/18 10:43 Dose: 0.3 mg Divalproex Sodium (Depakote Dr) 500 mg PO BID [facility] Last Admin: 09/08/18 17:36 Dose: 500 mg Donepezil HCl (Aricept) 10 mg PO HS [facility] Last Admin: 09/07/18 21:28 Dose: 10 mg Enoxaparin Sodium (Lovenox) 40 mg SC DAILY [facility] Last Admin: 09/08/18 10:43 Dose: 40 mg Escitalopram Oxalate (Lexapro) 10 mg PO DAILY [facility] Last Admin: 09/08/18 10:43 Dose: 10 mg Ceftriaxone Sodium (Rocephin Iv 1 Gm Duplex) 50 mls @ 100 mls/hr IVPB DAILY [facility]; Protocol Last Admin: 09/08/18 10:44 Dose: 100 mls/hr Memantine (Namenda) 10 mg PO BID [facility] Last Admin: 09/08/18 10:44 Dose: 10 mg Pantoprazole Sodium (Protonix Ec Tab) 40 mg PO DAILY [facility] Last Admin: 09/08/18 10:43 Dose: 40 mg Risperidone (Risperdal Tab) 0.25 mg PO HS [facility] Last Admin: 09/07/18 21:27 Dose: 0.25 mg Saccharomyces Adandii (Florastor) 250 mg PO BID [facility] Last Admin: 09/08/18 17:37 Dose: 250 mg - Labs Labs: 09/08/18 13:24 09/08/18 07:00 PT 12.0 SECONDS (9.7-12.2) 09/05/18 13:45 INR 1.1 09/05/18 13:45 APTT 35.0 SECONDS (21-34) H 09/05/18 13:45 - Constitutional Appears: Non-toxic, No Acute Distress, Confused - Head Exam Head Exam: ATRAUMATIC, NORMOCEPHALIC - Eye Exam Eye Exam: EOMI, PERRL - ENT Exam ENT Exam: Mucous Membranes Moist - Neck Exam Neck Exam: Full ROM. absent: Tenderness - Respiratory Exam Respiratory Exam: Decreased Breath Sounds, NORMAL BREATHING PATTERN. absent: Rales, Rhonchi, Wheezes, Respiratory Distress, Stridor - Cardiovascular Exam Cardiovascular Exam: REGULAR RHYTHM, +S1, +S2. absent: Gallop, Rubs, Murmur - GI/Abdominal Exam GI & Abdominal Exam: Soft, Normal Bowel Sounds. absent: Distended, Firm, Gua rding, Rigid, Tenderness - Extremities Exam Extremities Exam: absent: Calf Tenderness, Pedal Edema - Neurological Exam Neurological Exam: Awake. absent: Motor Sensory Deficit, Oriented x3 (Patient is oriented to self, but not to place or time. ) Neuro motor strength exam: Left Upper Extremity: 5, Right Upper Extremity: 5, Left Lower Extremity: 5, Right Lower Extremity: 5 - Psychiatric Exam Psychiatric exam: Normal Affect, Normal Mood - Skin Skin Exam: Dry, Intact, Warm Assessment and Plan - Assessment and Plan (Free Text) Assessment: 73 year old male with PMHx of Alzheimer's and HTN presents with increased aggression and admitted for RLL PNA. Suspected seizure after patient became altered with low blood pressure yesterday, pending MRI brain and EEG. Plan: Right Lower Lobe Pneumonia Imaging: - CXR: noted RLL PNA Management: - Blood and Urine cultures negative - White count 4.7 - Lactic acid pending - rapid flu negative - Rocephin 1g IV daily held given risk of decreased seizure threshold. - Azithromycin discontinued given risk of decreased seizure threshold. - Florastor 250mg PO BID started 09/05/18 Altered mental status, possibly secondary to seizure, improving Rapid response called 09/08/18 for altered mental status and hypotension Held clonidine, lexapro, lovenox, aricept, namenda, and risperdal. Gave one dose of Narcan 0.4mg IVP to reverse effects of clonidine, after patient became more awake. -Neuro Dr. Kapoor consulted, help appreciated -Depakote 500mg PO BID -Pending MRI brain and EEG -Fall risk -Aspiration precautions -PRL 75.2->14.4 - Initial CT head Generalized atrophy. Moderate to severe scattered nonspecific white matter changes. - Repeat CT head moderate to significant chronic white matter changes with slight extension of these changes into the white matter tracts of both basal nuc lei. - CXR improvement of atelectasis/infiltrates - EKG: NSR 69 BPM, LVH, no ST changes, no AV block noted Alzheimer's Dementia - Patient seen by Neurologist in [place] - Started on medications (waiting for family to bring in non-formulary medications- memantine) - Lexapro 10mg PO HS held after possible seizure - Denepezil 10mg PO HS held after possible seizure - Risperidone 0.25mg PO HS held after possible seizure HTN - Clonidine 0.3mg PO BID - held - Monitor vitals Prophylactic Measures - GI PPX: Protonix daily - DVT PPX: SCDs, Lovenox daily - PT/ OT - Case management for petroleum terminal plant operator placement as family is unable to take care for patient any more Case discussed with Dr. Angelo Good, PGY1
[2018-09-09 08:42] LABS: BASO % 0.2 % (0.0-2.0); EOS # 0.1 K/uL (0.0-0.7); EOS % 1.5 % (0.0-4.0); HEMOGLOBIN 13.1 g/dL (12.0-18.0); LYMPH # 1.2 K/uL (1.0-4.3); LYMPH % 26.6 % (20.0-40.0); MEAN CELL VOLUME 90.4 fL (80.0-94.0); MEAN CORPUSCULAR HEMOGLOBIN 31.3 pg (27.0-31.0); MEAN CORPUSCULAR HGB CONC 34.6 g/dL (33.0-37.0); MEAN PLATELET VOLUME 8.5 fL (7.2-11.7); MONO # 0.3 K/uL (0.0-0.8); MONO % 6.2 % (0.0-10.0); NEUT # 3.1 K/uL (1.8-7.0); NEUT % 65.5 % (50.0-75.0); NRBC % 0.1 % (0.0-2.0); RBC 4.18 Mil/uL (4.40-5.90); RED CELL DISTRIBUTION WIDTH 13.3 % (11.5-14.5); WHITE BLOOD COUNT 4.7 K/uL (4.8-10.8)
[2018-09-09 08:57] LABS: ALB/GLOB RATIO 1.1 (1.0-2.1); ALBUMIN 3.5 g/dL (3.5-5.0); ALT/SGPT 65 U/L (21-72); AST/SGOT 61 U/L (17-59); BLOOD UREA NITROGEN 12 mg/dL (9-20); CALCIUM 9.2 mg/dl (8.6-10.4); GFR NON-AFRICAN AMERICAN > 60
[2018-09-09 09:10] LABS: PROLACTIN 14.4 ng/mL (3.7-17.9)
[2018-09-09] MEDS: Saccharomyces Boulardi 250 mg Cap PO SCH ×2 (09:37→17:42)
[2018-09-09] MEDS: Pantoprazole 40 mg EC Tab PO SCH (09:37)
[2018-09-09] MEDS: Divalproex 500 mg DR Tab PO SCH ×2 (09:37→17:42)
--- NOTE | 2018-09-09 18:45 | CON ---
DATE: 09/08/2018 Neurologic consult called for Kory Hernandez. HISTORY OF PRESENT ILLNESS: Mr. Hernandez is a 73-year-old male with past medical history of Alzheimer's dementia diagnosed over 10 years ago and chronic changes in mental status on 09/05/2018. He has been deteriorating steadily over the last one year. Baseline, he is not oriented to person, place or time. His speech is limited and he is able to follow only one-step commands. Over the several hours, the patient developed an acute change in menta status, tonic clonic seizure was not , but when he was seen he was considered to be lethargic more confused than usual. PAST MEDICAL HISTORY: Only significant for . PAST SURGICAL HISTORY: Unknown. ALLERGIES: NO KNOWN DRUG ALLERGIES. SOCIAL HISTORY: Lives with family. No tobacco, no alcohol . REVIEW OF SYSTEM: Is not possible today. PHYSICAL EXAMINATION: GENERAL: The patient is awake, alert and oriented to name only, he will follows one-step commands, he is sitting up in bed, trembling bilaterally, but not with a seizure, but had a resting tremor. HEENT: Face is symmetric, EOMI, Cranial nerves II through XII normal. Sensory exam is not possible due to the patient's mental status. Motor is 5/5 upper and lower extremities, he refused his gait, reflexes are +1 upper and lower limbs bilaterally, he is not able to name or repeat . LABORATORY DATA: CAT scan of the head was done and shows the following, moderate to severe chronic white matter changes ganglia with significant volume loss. White count 4.4, hemoglobin 11.3, hematocrit 33.5, coags are normal. Chemistries shows the following all normal except for ALT which is 20, prolactin 75.2. IMPRESSION: This is a 73-year-old male with severe Alzheimer's dementia, who may have had seizures or may have had a metabolic incident. PLAN: 1. EEG, 2. MRI of the brain without contrast in the morning. 3. Load with Depakote 1000 Intravenous now and 500 mg twice a day. Thank you for this consult. Gautami Kapoor, MD
[2018-09-10 07:57] LABS: BASO % 0.2 % (0.0-2.0); EOS # 0.1 K/uL (0.0-0.7); HEMOGLOBIN 14.1 g/dL (12.0-18.0); LYMPH # 0.8 K/uL (1.0-4.3); LYMPH % 14.9 % (20.0-40.0); MEAN CELL VOLUME 89.5 fL (80.0-94.0); MEAN CORPUSCULAR HEMOGLOBIN 31.1 pg (27.0-31.0); MEAN CORPUSCULAR HGB CONC 34.8 g/dL (33.0-37.0); MEAN PLATELET VOLUME 8.6 fL (7.2-11.7); MONO # 0.3 K/uL (0.0-0.8); MONO % 5.4 % (0.0-10.0); NEUT # 4.4 K/uL (1.8-7.0); NEUT % 78.5 % (50.0-75.0); RBC 4.54 Mil/uL (4.40-5.90); RED CELL DISTRIBUTION WIDTH 13.3 % (11.5-14.5); WHITE BLOOD COUNT 5.6 K/uL (4.8-10.8)
[2018-09-10 08:18] LABS: ALB/GLOB RATIO 1.2 (1.0-2.1); ALT/SGPT 53 U/L (21-72); AST/SGOT 53 U/L (17-59); BLOOD UREA NITROGEN 11 mg/dL (9-20); CALCIUM 9.7 mg/dl (8.6-10.4); GFR NON-AFRICAN AMERICAN > 60
--- NOTE | 2018-09-10 08:34 | CP.PCM.PN ---
Subjective - Date & Time of Evaluation Date of Evaluation: 09/10/18 Time of Evaluation: 08:30 - Subjective Subjective: Progress Note for Dr. Stephens's service. Patient seen and examined at bedside. AOx1, baseline. Only complaint is that his stomach is grumbling. Denies chest pain, shortness of breath, cough, nausea, vomiting, abdominal pain, fever and chills. Objective - Vital Signs/Intake and Output Vital Signs (last 24 hours): Temp Pulse Resp BP Pulse Ox 97.8 F 65 20 156/86 H 98 09/10/18 07:57 09/10/18 07:57 09/10/18 07:57 09/10/18 07:57 09/10/18 07:57 Intake and Output: 09/10/18 09/10/18 06:59 18:59 Intake Total 300 Balance 300 - Medications Medications: Current Medications Acetaminophen (Tylenol 325mg Tab) 650 mg PO Q6 PRN PRN Reason: Fever >100.4 F Last Admin: 09/10/18 02:45 Dose: 650 mg Clonidine HCl (Catapres) 0.3 mg PO BID [facility] Last Admin: 09/08/18 10:43 Dose: 0.3 mg Divalproex Sodium (Depakote Dr) 500 mg PO BID [facility] Last Admin: 09/09/18 17:42 Dose: 500 mg Donepezil HCl (Aricept) 10 mg PO HS [facility] Last Admin: 09/07/18 21:28 Dose: 10 mg Enoxaparin Sodium (Lovenox) 40 mg SC DAILY [facility] Last Admin: 09/08/18 10:43 Dose: 40 mg Escitalopram Oxalate (Lexapro) 10 mg PO DAILY [facility] Last Admin: 09/09/18 09:37 Dose: 10 mg Ceftriaxone Sodium (Rocephin Iv 1 Gm Duplex) 50 mls @ 100 mls/hr IVPB DAILY [facility]; Protocol Last Admin: 09/08/18 10:44 Dose: 100 mls/hr Memantine (Namenda) 10 mg PO BID [facility] Last Admin: 09/08/18 10:44 Dose: 10 mg Pantoprazole Sodium (Protonix Ec Tab) 40 mg PO DAILY [facility] Last Admin: 09/09/18 09:37 Dose: 40 mg Risperidone (Risperdal Tab) 0.25 mg PO HS [facility] Last Admin: 09/07/18 21:27 Dose: 0.25 mg Saccharomyces Loriei (Florastor) 250 mg PO BID [facility] Last Admin: 09/09/18 17:42 Dose: 250 mg - Labs Labs: 09/10/18 07:41 09/10/18 07:41 PT 12.0 SECONDS (9.7-12.2) 09/05/18 13:45 INR 1.1 09/05/18 13:45 APTT 35.0 SECONDS (21-34) H 09/05/18 13:45 - Additional Findings Additional findings: - Constitutional Appears: Non-toxic, No Acute Distress - Head Exam Head Exam: ATRAUMATIC, NORMOCEPHALIC - Eye Exam Eye Exam: EOMI, Normal appearance, PERRL - ENT Exam ENT Exam: Normal Exam - Neck Exam Neck Exam: Full ROM, Normal Inspection - Respiratory Exam Respiratory Exam: Clear to auscultation, NORMAL BREATHING PATTERN. absent: Rales, Rhonchi, Wheezes, Respiratory Distress - Cardiovascular Exam Cardiovascular Exam: REGULAR RHYTHM, +S1, +S2 - GI/Abdominal Exam GI & Abdominal Exam: Soft, Normal Bowel Sounds. absent: Firm, Guarding, Rigid, Tenderness, Rebound - Neurological Exam Neurological Exam: Alert, Awake, CN II-XII Intact, moves all extremities equally, 5/5 muscle strength Awake, alert, oriented x1 (person) - Psychiatric Exam Psychiatric exam: Normal Affect, Normal Mood - Skin Skin Exam: Dry, Normal Color, Warm Assessment and Plan - Assessment and Plan (Free Text) Plan: 73 year old male with PMHx of Alzheimer's and HTN presents with increased aggression and admitted for RLL PNA. Suspected seizure after patient became altered with low blood pressure yesterday, pending MRI brain and EEG. Right Lower Lobe Pneumonia Imaging: - Initial CXR: noted RLL PNA - CXR 09/08: interval improvement of previously noted bibasilar atelectatic and or infiltrates. See full report. Management: - Blood and Urine cultures negative - White count 4.7 - rapid flu negative - Rocephin 1g IV daily held given risk of decreased seizure threshold. - Azithromycin discontinued given risk of decreased seizure threshold. - Florastor 250mg PO BID started 09/05/18 Altered mental status, possibly secondary to seizure, improving Rapid response called 09/08/18 for altered mental status and hypotension Held clonidine, lexapro, lovenox, aricept, namenda, and risperdal. Gave one dose of Narcan 0.4mg IVP to reverse effects of clonidine, after patient became more awake. - Initial CT head Generalized atrophy. Moderate to severe scattered nonspecific white matter changes. - Repeat CT head moderate to significant chronic white matter changes with slight extension of these changes into the white matter tracts of both basal nuclei. -MRI brain- No acute intracranial abnormality. Extensive multifocal and confluent periventricular white matter changes extending to the subcortical white matter, nonspecific and may represent severe chronic microangiopathic changes, demyelination or dysmyelination. Clinical follow-up is advised. Moderate age-related global parenchymal volume loss. -Neuro Dr. Kaopor consulted, help appreciated -09/10/18: as per Dr. Oneal, permissive hypertension for 24 hours up to bp of 220/110, NS @100mls/hr -add aspirin 81mg daily -Depakote 500mg PO BID -EEG pending -Fall risk -Aspiration precautions -PRL 75.2->14.4 - CXR improvement of atelectasis/infiltrates - EKG: NSR 69 BPM, LVH, no ST changes, no AV block noted Alzheimer's Dementia - Patient seen by Neurologist in [place] - Lexapro 10mg PO HS held after possible seizure - Denepezil 10mg PO HS held after possible seizure - Memantine 10mg daily held after possible seizure - Risperidone 0.25mg PO HS discontinued after possible seizure-> Seroquel 25mg HS as per Neuro recs HTN - Clonidine 0.3mg PO BID - held - Monitor vitals Prophylactic Measures - GI PPX: Protonix daily - DVT PPX: SCDs, Lovenox daily - PT/ OT - Case management for termite exterminator placement as family is unable to take care for patient any more Case discussed with Dr. Angelo Torre, PGY-1
[2018-09-10] MEDS: Pantoprazole 40 mg EC Tab PO SCH (10:11)
[2018-09-10] MEDS: Divalproex 500 mg DR Tab PO SCH ×2 (10:11→18:12)
[2018-09-10] MEDS: Saccharomyces Boulardi 250 mg Cap PO SCH ×2 (10:12→18:12)
--- NOTE | 2018-09-10 13:17 | CP.PCM.PN ---
Subjective - Date & Time of Evaluation Date of Evaluation: 09/10/18 Time of Evaluation: 11:00 - Subjective Subjective: PGY-[address] Oneal Patient is seen and examined at bedside. Patient is poor historian, awake but oriented to person only and not to place or time. Patient reports no complaints today. Pleasantly confused. ROS unattainable due to patient's status. Objective - Vital Signs/Intake and Output Vital Signs (last 24 hours): Temp Pulse Resp BP Pulse Ox 97.8 F 65 20 156/86 H 98 09/10/18 07:57 09/10/18 07:57 09/10/18 07:57 09/10/18 07:57 09/10/18 07:57 Intake and Output: 09/10/18 09/10/18 06:59 18:59 Intake Total 300 Balance 300 - Medications Medications: Current Medications Acetaminophen (Tylenol 325mg Tab) 650 mg PO Q6 PRN PRN Reason: Fever >100.4 F Last Admin: 09/10/18 02:45 Dose: 650 mg Clonidine HCl (Catapres) 0.3 mg PO BID [facility] Last Admin: 09/08/18 10:43 Dose: 0.3 mg Divalproex Sodium (Depakote Dr) 500 mg PO BID [facility] Last Admin: 09/10/18 10:11 Dose: 500 mg Donepezil HCl (Aricept) 10 mg PO HS [facility] Last Admin: 09/07/18 21:28 Dose: 10 mg Enoxaparin Sodium (Lovenox) 40 mg SC DAILY [facility] Last Admin: 09/08/18 10:43 Dose: 40 mg Escitalopram Oxalate (Lexapro) 10 mg PO DAILY [facility] Last Admin: 09/10/18 10:10 Dose: 10 mg Memantine (Namenda) 10 mg PO BID [facility] Last Admin: 09/08/18 10:44 Dose: 10 mg Pantoprazole Sodium (Protonix Ec Tab) 40 mg PO DAILY [facility] Last Admin: 09/10/18 10:11 Dose: 40 mg Quetiapine Fumarate (Seroquel) 25 mg PO HS [facility] Saccharomyces Boulardii (Florastor) 250 mg PO BID [facility] Last Admin: 09/10/18 10:12 Dose: 250 mg - Labs Labs: 09/10/18 07:41 09/10/18 07:41 PT 12.0 SECONDS (9.7-12.2) 09/05/18 13:45 INR 1.1 09/05/18 13:45 APTT 35.0 SECONDS (21-34) H 09/05/18 13:45 - Constitutional Appears: Non-toxic, No Acute Distress, Confused - Head Exam Head Exam: ATRAUMATIC, NORMOCEPHALIC - Eye Exam Eye Exam: PERRL - Respiratory Exam Respiratory Exam: NORMAL BREATHING PATTERN - Neurological Exam Neurological Exam: Alert, Awake, CN II-XII Intact. absent: Normal Gait Neuro motor strength exam: Left Upper Extremity: 5, Right Upper Extremity: 5, Left Lower Extremity: 5, Right Lower Extremity: 5 Additional comments: AAO x1 sensation intact patient's has difficulty following certain commands on neuro exam Assessment and Plan - Assessment and Plan (Free Text) Plan: 73 year old male with pmhx of Alzheimer's dementia, Neuro consulted for AMS, LARD MAKER called for unresponsiveness and hypotension. CT head shows generalized atrophy, chronic white matter changes, MRI questionable b/l occipital area findings for acute vs chronic ischemic event vs seizure, will follow up official read. 1. ASA 81 mg 2. NS @ 100 mls/hr, Permissive HTN no higher than 220/110. 3. f/u bedside EEG to rule out epilepsy 4. continue depakote 500mg PO BID 5. Fall risk precautions, aspiration precautions 6. Continue PT/OT Plan d/w Dr Jm Canales, PGY-1
--- NOTE | 2018-09-10 13:18 | CARD ---
APPROVED REPORT Date of service: 09/08/2018 EKG Measurement Heart [id number] <Conclusion> Sinus bradycardia ST elevation, probably due to early repolarization Borderline ECG
--- NOTE | 2018-09-10 14:01 | MRI ---
Date of service: 09/10/2018 PROCEDURE: MRI BRAIN WITHOUT CONTRAST HISTORY: Altered mental status COMPARISON: CT head without contrast from 09/08/2018. TECHNIQUE: Multiplanar, multisequence MR images of the brain were obtained without intravenous contrast enhancement. FINDINGS: HEMORRHAGE: None DWI: No evidence of an acute or early subacute infarction. BRAIN PARENCHYMA: There are extensive confluent T2/FLAIR hyperintensities in the periventricular white matter extending to the subcortical white matter. There are also multifocal T2/FLAIR hyperintense lesions in the subcortical and deep supratentorial white matter. There is no mass, mass effect or abnormal extra-axial fluid collection. There is no territorial infarction. The midline sagittal structures are normal. VENTRICLES: There is moderate age-related global parenchymal volume loss and proportionate enlargement of the ventricles and cortical sulci. There is cavum septum pellucidum. CRANIUM: There is normal bone marrow signal pattern. ORBITS: Grossly unremarkable. PARANASAL SINUSES/MASTOIDS: Predominantly clear. VASCULAR SYSTEM: There are normal signal voids in the larger intracranial arteries. OTHER FINDINGS: None. IMPRESSION: 1. No acute intracranial abnormality. 2. Extensive multifocal and confluent periventricular white matter changes extending to the subcortical white matter, nonspecific and may represent severe chronic microangiopathic changes, demyelination or dysmyelination. Clinical follow-up is advised. 3. Moderate age-related global parenchymal volume loss.
[2018-09-10] MEDS: Sodium Chloride 0.9% 1,000 ML IV SCH (18:11)
[2018-09-11] MEDS: Sodium Chloride 0.9% 1,000 ML IV SCH ×3 (03:00→12:55)
--- NOTE | 2018-09-11 07:57 | CP.PCM.PN ---
Subjective - Date & Time of Evaluation Date of Evaluation: 09/11/18 Time of Evaluation: 07:56 - Subjective Subjective: Progress Note for Dr. Stephens's service. Patient seen and examined at bedside. Has no complaints at this time. Denies chest pain, shortness of breath, cough, nausea, vomiting, abdominal pain, fever and chills. Objective - Vital Signs/Intake and Output Vital Signs (last 24 hours): Temp Pulse Resp BP Pulse Ox 97.2 F L 76 20 159/89 H 95 09/11/18 07:51 09/11/18 07:51 09/11/18 07:51 09/11/18 07:51 09/11/18 07:51 Intake and Output: 09/11/18 09/11/18 06:59 18:59 Intake Total 1150 Output Total 600 Balance 550 - Medications Medications: Current Medications Acetaminophen (Tylenol 325mg Tab) 650 mg PO Q6 PRN PRN Reason: Fever >100.4 F Last Admin: 09/10/18 02:45 Dose: 650 mg Aspirin (Ecotrin) 81 mg PO DAILY [facility] Last Admin: 09/10/18 14:33 Dose: 81 mg Clonidine HCl (Catapres) 0.3 mg PO BID [facility] Last Admin: 09/08/18 10:43 Dose: 0.3 mg Divalproex Sodium (Depakote Dr) 500 mg PO BID [facility] Last Admin: 09/10/18 18:12 Dose: 500 mg Donepezil HCl (Aricept) 10 mg PO HS [facility] Last Admin: 09/07/18 21:28 Dose: 10 mg Enoxaparin Sodium (Lovenox) 40 mg SC DAILY [facility] Last Admin: 09/08/18 10:43 Dose: 40 mg Escitalopram Oxalate (Lexapro) 10 mg PO DAILY [facility] Last Admin: 09/10/18 10:10 Dose: 10 mg Sodium Chloride (Sodium Chloride 0.9%) 1,000 mls @ 100 mls/hr IV .Q10H [facility] Last Admin: 09/11/18 03:00 Dose: 100 mls/hr Memantine (Namenda) 10 mg PO BID [facility] Last Admin: 09/08/18 10:44 Dose: 10 mg Pantoprazole Sodium (Protonix Ec Tab) 40 mg PO DAILY [facility] Last Admin: 09/10/18 10:11 Dose: 40 mg Quetiapine Fumarate (Seroquel) 25 mg PO HS PRN PRN Reason: Agitation Saccharomyces Adandii (Florastor) 250 mg PO BID [facility] Last Admin: 09/10/18 18:12 Dose: 250 mg - Labs Labs: 09/10/18 07:41 09/10/18 07:41 PT 12.0 SECONDS (9.7-12.2) 09/05/18 13:45 INR 1.1 09/05/18 13:45 APTT 35.0 SECONDS (21-34) H 09/05/18 13:45 - Additional Findings Additional findings: - Constitutional Appears: Non-toxic, No Acute Distress - Head Exam Head Exam: ATRAUMATIC, NORMOCEPHALIC - Eye Exam Eye Exam: EOMI, Normal appearance, PERRL - ENT Exam ENT Exam: Normal Exam - Neck Exam Neck Exam: Full ROM, Normal Inspection - Respiratory Exam Respiratory Exam: Clear to auscultation, NORMAL BREATHING PATTERN. absent: Rales, Rhonchi, Wheezes, Respiratory Distress - Cardiovascular Exam Cardiovascular Exam: REGULAR RHYTHM, +S1, +S2 - GI/Abdominal Exam GI & Abdominal Exam: Soft, Normal Bowel Sounds. absent: Firm, Guarding, Rigid, Tenderness, Rebound - Neurological Exam Neurological Exam: Alert, Awake, CN II-XII Intact, moves all extremities equally, 5/5 muscle strength Awake, alert, oriented x1 (person) - Psychiatric Exam Psychiatric exam: Normal Affect, Normal Mood - Skin Skin Exam: Dry, Normal Color, Warm Assessment and Plan - Assessment and Plan (Free Text) Plan: 73 year old male with PMHx of Alzheimer's and HTN presents with increased aggression and admitted for RLL PNA. Suspected seizure after patient became altered with low blood pressure yesterday, pending MRI brain and EEG. Suspected Right Lower Lobe Pneumonia, improving Imaging: - Initial CXR: noted RLL PNA - CXR 09/08: interval improvement of previously noted bibasilar atelectatic and or infiltrates. See full report. Management: - Blood and Urine cultures negative - White count 4.7 - rapid flu negative - Rocephin 1g IV daily and Azithromycin started on 09/05/18-discontinued on 09/08/18 given risk of decreased seizure threshold and improved CXR - Florastor 250mg PO BID started 09/05/18 Altered mental status, possibly secondary to seizure, resolved Rapid response called 09/08/18 for altered mental status and hypotension Held clonidine, lexapro, lovenox, aricept, namenda, and risperdal. Gave one dose of Narcan 0.4mg IVP to reverse effects of clonidine, after patient became more awake. - Initial CT head Generalized atrophy. Moderate to severe scattered nonspecific white matter changes. - Repeat CT head moderate to significant chronic white matter changes with slight extension of these changes into the white matter tracts of both basal nuclei. -MRI brain- No acute intracranial abnormality. Extensive multifocal and confluent periventricular white matter changes extending to the subcortical white matter, nonspecific and may represent severe chronic microangiopathic changes, demyelination or dysmyelination. Clinical follow-up is advised. Moderate age-related global parenchymal volume loss. -Neuro Dr. Kapoor consulted, help appreciated -Continue aspirin 81mg daily, depakote 500mg BID and follow up EEG -Depakote 500mg PO BID -EEG pending -Fall risk -Aspiration precautions -PRL 75.2->14.4 - CXR improvement of atelectasis/infiltrates - EKG: NSR 69 BPM, LVH, no ST changes, no AV block noted Alzheimer's Dementia - Patient seen by Neurologist in [place] - Lexapro 10mg PO HS held after possible seizure - Denepezil 10mg PO HS held after possible seizure - Memantine 10mg daily held after possible seizure - Risperidone 0.25mg PO HS discontinued after possible seizure-> Seroquel 25mg HS as per Neuro recs HTN - Clonidine 0.3mg PO BID - held due to hypotension and AMS - Monitor vitals Prophylactic Measures - GI PPX: Protonix daily - DVT PPX: SCDs, Lovenox daily - PT/ OT - Case management for correction placement as family is unable to take care for patient any more Dispo: Awaiting technician terminal and repeater placement. As per neuro, continue aspirin 81mg daily, depakote 500mg BID and follow up EEG. Case discussed with Dr. Stephens. Randi Torre, PGY-1
[2018-09-11] MEDS: Divalproex 500 mg DR Tab PO SCH ×2 (10:24→18:24)
[2018-09-11] MEDS: Enoxaparin 40 mg Syringe SC SCH (10:24)
[2018-09-11] MEDS: Saccharomyces Boulardi 250 mg Cap PO SCH ×2 (10:25→18:24)
[2018-09-11] MEDS: Pantoprazole 40 mg EC Tab PO SCH (10:25)
[2018-09-11 11:28] LABS: BASO % 0.2 % (0.0-2.0); EOS % 0.5 % (0.0-4.0); HEMOGLOBIN 13.5 g/dL (12.0-18.0); LYMPH # 0.8 K/uL (1.0-4.3); LYMPH % 8.9 % (20.0-40.0); MEAN CELL VOLUME 89.8 fL (80.0-94.0); MEAN CORPUSCULAR HEMOGLOBIN 30.9 pg (27.0-31.0); MEAN CORPUSCULAR HGB CONC 34.4 g/dL (33.0-37.0); MEAN PLATELET VOLUME 8.4 fL (7.2-11.7); MONO # 0.5 K/uL (0.0-0.8); MONO % 5.7 % (0.0-10.0); NEUT # 7.5 K/uL (1.8-7.0); NEUT % 84.7 % (50.0-75.0); NRBC % 0.2 % (0.0-2.0); PLATELET COUNT 133 K/uL (130-400); RBC 4.37 Mil/uL (4.40-5.90); RED CELL DISTRIBUTION WIDTH 13.5 % (11.5-14.5)
[2018-09-11 11:33] LABS: WHITE BLOOD COUNT 8.9 K/uL (4.8-10.8)
[2018-09-11 11:55] LABS: ALB/GLOB RATIO 1.1 (1.0-2.1); ALBUMIN 3.6 g/dL (3.5-5.0); ALT/SGPT 38 U/L (21-72); AST/SGOT 38 U/L (17-59); BLOOD UREA NITROGEN 7 mg/dL (9-20); CALCIUM 9.3 mg/dl (8.6-10.4); GFR NON-AFRICAN AMERICAN > 60
[2018-09-11 12:22] LABS: BANDS 2 % (0-2); NEUTROPHIL 82 % (50-75); REACTIVE LYMPHOCYTES 1 % (0-0); TOTAL CELLS COUNTED 100
[2018-09-11 12:23] LABS: LYMPHOCYTE 10 % (20-40); MONOCYTE 5 % (0-10); PLATELET ESTIMATE NORMAL (NORMAL)
--- NOTE | 2018-09-11 15:33 | CP.PCM.PN ---
<Satnam Canales - Last Filed: 09/11/18 16:22> Subjective - Date & Time of Evaluation Date of Evaluation: 09/11/18 Time of Evaluation: 15:30 - Subjective Subjective: PGY-1 Neuro progress note for Dr Oneal Patient seen and examined at bedside. Patient is pleasantly confused, no acute changes overnight. Poor historian, awake and oriented x1. No complaints at this time. Objective - Vital Signs/Intake and Output Vital Signs (last 24 hours): Temp Pulse Resp BP Pulse Ox 97.2 F L 79 20 159/89 H 95 09/11/18 07:51 09/11/18 07:58 09/11/18 07:51 09/11/18 07:51 09/11/18 07:51 Intake and Output: 09/11/18 09/11/18 06:59 18:59 Intake Total 1150 Output Total 600 Balance 550 - Medications Medications: Current Medications Acetaminophen (Tylenol 325mg Tab) 650 mg PO Q6 PRN PRN Reason: Fever >100.4 F Last Admin: 09/11/18 10:29 Dose: 650 mg Aspirin (Ecotrin) 81 mg PO DAILY [facility] Last Admin: 09/11/18 10:25 Dose: 81 mg Clonidine HCl (Catapres) 0.3 mg PO BID [facility] Last Admin: 09/08/18 10:43 Dose: 0.3 mg Divalproex Sodium (Depakote Dr) 500 mg PO BID [facility] Last Admin: 09/11/18 10:24 Dose: 500 mg Donepezil HCl (Aricept) 10 mg PO HS [facility] Last Admin: 09/07/18 21:28 Dose: 10 mg Enoxaparin Sodium (Lovenox) 40 mg SC DAILY [facility] Last Admin: 09/11/18 10:24 Dose: 40 mg Escitalopram Oxalate (Lexapro) 10 mg PO DAILY [facility] Last Admin: 09/11/18 10:25 Dose: 10 mg Sodium Chloride (Sodium Chloride 0.9%) 1,000 mls @ 100 mls/hr IV .Q10H [facility] Last Admin: 09/11/18 12:55 Dose: 100 mls/hr Memantine (Namenda) 10 mg PO BID [facility] Last Admin: 09/08/18 10:44 Dose: 10 mg Pantoprazole Sodium (Protonix Ec Tab) 40 mg PO DAILY [facility] Last Admin: 09/11/18 10:25 Dose: 40 mg Quetiapine Fumarate (Seroquel) 25 mg PO HS PRN PRN Reason: Agitation Rita Meloi (Florastor) 250 mg PO BID [facility] Last Admin: 09/11/18 10:25 Dose: 250 mg - Labs Labs: 09/11/18 11:24 09/11/18 11:24 PT 12.0 SECONDS (9.7-12.2) 09/05/18 13:45 INR 1.1 09/05/18 13:45 APTT 35.0 SECONDS (21-34) H 09/05/18 13:45 - Constitutional Appears: Non-toxic, No Acute Distress - Head Exam Head Exam: ATRAUMATIC, NORMOCEPHALIC - Eye Exam Eye Exam: EOMI, PERRL - Neurological Exam Neurological Exam: Awake, CN II-XII Intact. absent: Normal Gait, Oriented x3 Neuro motor strength exam: Left Upper Extremity: 5, Right Upper Extremity: 5, Left Lower Extremity: 5, Right Lower Extremity: 5 Additional comments: AAOx1 difficulty following commands for cerebellar testing Assessment and Plan - Assessment and Plan (Free Text) Plan: 73 year old male with pmhx of Alzheimer's dementia, Neuro consulted for AMS, LURE MAKER called for unresponsiveness and hypotension. CT head shows generalized atrophy, chronic white matter changes, MRI official report shows no acute intracranial abnormality, extensive multifocal and confluent perventricular white matter changes extending to subcortical white matter, moderate age related global parenchymal volume loss 1. continue ASA 81 2. f/u bedside EEG 3. continue Depakote 4. continue PT/OT, fall risk and aspiration precautions 5. neuro will sign off, re consult as needed Plan d/w Dr Jm Canales <Clement Oneal - Last Filed: 09/13/18 15:28> Objective - Vital Signs/Intake and Output Vital Signs (last 24 hours): Temp Pulse Resp BP Pulse Ox 98.9 F 95 H 20 144/85 98 09/12/18 15:00 09/12/18 15:00 09/12/18 15:00 09/12/18 15:00 09/13/18 10:31 - Labs Labs: 09/12/18 07:43 09/12/18 07:43 PT 12.0 SECONDS (9.7-12.2) 09/05/18 13:45 INR 1.1 09/05/18 13:45 APTT 35.0 SECONDS (21-34) H 09/05/18 13:45 Attending/Attestation - Attestation I have personally seen and examined this patient.: Yes I have fully participated in the care of the patient.: Yes I have reviewed all pertinent clinical information, including history, physical exam and plan: Yes Notes (Text): I agree with the assessment and plan as outlined above.
--- NOTE | 2018-09-12 07:12 | CP.PCM.PN ---
Subjective - Date & Time of Evaluation Date of Evaluation: 09/12/18 Time of Evaluation: 07:45 - Subjective Subjective: PGY1 Medicine progress note for Dr. Stephens Pt seen and examined at bedside, resting comfortably. No acute events overnight. Pt is confused at baseline. Denies any acute complaints. Answers no to ROS: Denies fever, chills, chest pain, sob, abdominal pain, n/v/d, hematochezia, melena, urinary complaints. Objective - Vital Signs/Intake and Output Vital Signs (last 24 hours): Temp Pulse Resp BP Pulse Ox 97.9 F 83 18 171/90 H 96 09/11/18 23:39 09/12/18 01:00 09/11/18 23:39 09/11/18 23:39 09/11/18 23:39 Intake and Output: 09/12/18 09/12/18 06:59 18:59 Intake Total 0 Output Total 1045 Balance -1045 - Medications Medications: Current Medications Acetaminophen (Tylenol 325mg Tab) 650 mg PO Q6 PRN PRN Reason: Fever >100.4 F Last Admin: 09/11/18 10:29 Dose: 650 mg Aspirin (Ecotrin) 81 mg PO DAILY [facility] [place] Last Admin: 09/11/18 10:25 Dose: 81 mg Clonidine HCl (Catapres) 0.3 mg PO BID [facility] [place] Last Admin: 09/08/18 10:43 Dose: 0.3 mg Divalproex Sodium (Depakote Dr) 500 mg PO BID [facility] [place] Last Admin: 09/11/18 18:24 Dose: 500 mg Donepezil HCl (Aricept) 10 mg PO HS [facility] [place] Last Admin: 09/07/18 21:28 Dose: 10 mg Enoxaparin Sodium (Lovenox) 40 mg SC DAILY [facility] [place] Last Admin: 09/11/18 10:24 Dose: 40 mg Escitalopram Oxalate (Lexapro) 10 mg PO DAILY [facility] [place] Last Admin: 09/11/18 10:25 Dose: 10 mg Memantine (Namenda) 10 mg PO BID [facility] [place] Last Admin: 09/08/18 10:44 Dose: 10 mg Pantoprazole Sodium (Protonix Ec Tab) 40 mg PO DAILY [facility] [place] Last Admin: 09/11/18 10:25 Dose: 40 mg Quetiapine Fumarate (Seroquel) 25 mg PO HS PRN PRN Reason: Agitation Saccharomyces Boulardii (Florastor) 250 mg PO BID [facility] Last Admin: 09/11/18 18:24 Dose: 250 mg - Labs Labs: 09/11/18 11:24 09/11/18 11:24 PT 12.0 SECONDS (9.7-12.2) 09/05/18 13:45 INR 1.1 09/05/18 13:45 APTT 35.0 SECONDS (21-34) H 09/05/18 13:45 - Additional Findings Additional findings: - Constitutional Appears: Non-toxic, No Acute Distress - Head Exam Head Exam: ATRAUMATIC, NORMOCEPHALIC - Eye Exam Eye Exam: EOMI, Normal appearance, PERRL - ENT Exam ENT Exam: Normal Exam - Neck Exam Neck Exam: Full ROM, Normal Inspection - Respiratory Exam Respiratory Exam: Clear to auscultation, NORMAL BREATHING PATTERN, Decreased breath sounds bilaterally may be due to pt being confused at baseline and unable to follow this command properly. absent: Rales, Rhonchi, Wheezes, Respiratory Distress - Cardiovascular Exam Cardiovascular Exam: REGULAR RHYTHM, +S1, +S2 - GI/Abdominal Exam GI & Abdominal Exam: Soft, Normal Bowel Sounds. absent: Firm, Guarding, Rigid, Tenderness, Rebound - Neurological Exam Neurological Exam: Alert, Awake, Moves all extremities spontaneously Awake, alert, oriented x1 (person) - Psychiatric Exam Psychiatric exam: Normal Affect, Normal Mood - Skin Skin Exam: Dry, Normal Color, Warm Assessment and Plan - Assessment and Plan (Free Text) Assessment: 73 year old male with PMHx of Alzheimer's and HTN presents with increased aggression and admitted for RLL PNA. Suspected seizure after patient became altered with low blood pressure 09/08. Suspected Right Lower Lobe Pneumonia, improving Imaging: - Initial CXR: noted RLL PNA - CXR 09/08: interval improvement of previously noted bibasilar atelectatic and or infiltrates. See full report. Management: - Blood and Urine cultures negative - Leukocytosis today at 11.6, with left shift - Rapid flu negative - Rocephin 1g IV daily and Azithromycin started on 09/05/18-discontinued on 09/08/18 given risk of decreased seizure threshold and improved CXR - Florastor 250mg PO BID started 09/05/18 Altered mental status, possibly secondary to seizure, resolved - Rapid response called 09/08/18 for altered mental status and hypotension Held clonidine, lexapro, lovenox, aricept, namenda, and risperdal. Gave one dose of Narcan 0.4mg IVP to reverse effects of clonidine, after pa bhavesh became more awake. - Initial CT head Generalized atrophy. Moderate to severe scattered nonspecific white matter changes. - Repeat CT head moderate to significant chronic white matter changes with slight extension of these changes into the white matter tracts of both basal nuclei. - MRI brain- No acute intracranial abnormality. Extensive multifocal and confluent periventricular white matter changes extending to the subcortical white matter, nonspecific and may represent severe chronic microangiopathic changes, demyelination or dysmyelination. Clinical follow-up is advised. Moderate age-related global parenchymal volume loss. - Neuro Dr. Kapoor consulted, help appreciated -Continue aspirin 81mg daily, depakote 500mg BID and follow up EEG - Depakote 500mg PO BID - EEG pending - Fall risk - Aspiration precautions - PRL 75.2->14.4 - CXR 09/08: improvement of atelectasis/infiltrates - EKG: NSR 69 BPM, LVH, no ST changes, no AV block noted - EEG (09/10/18): Impression: Normal awake drowsy and sleep electroencephalogram. Alzheimer's Dementia - Patient seen by Neurologist in [place] - Lexapro 10mg PO HS - Denepezil 10mg PO HS held after possible seizure - Memantine 10mg daily held after possible seizure - Seroquel 25mg HS as per Neuro recs HTN - Clonidine 0.3mg PO BID - held due to hypotension and AMS - Monitor vitals SBP in 150s-170s, DBP in 80s-90s Prophylactic Measures - GI PPX: Protonix daily - DVT PPX: SCDs, Lovenox daily - PT/OT - Case management for retirement placement as family is unable to take care for patient any more Dispo: Awaiting ferry terminal agent placement. As per neuro, continue aspirin 81mg daily, depakote 500mg BID. Further recommendations as per Dr. Angelo Phoenix PGY1
[2018-09-12 08:00] LABS: BASO % 0.2 % (0.0-2.0); EOS % 0.3 % (0.0-4.0); HEMOGLOBIN 13.8 g/dL (12.0-18.0); LYMPH % 8.2 % (20.0-40.0); MEAN CELL VOLUME 90.3 fL (80.0-94.0); MEAN CORPUSCULAR HEMOGLOBIN 31.1 pg (27.0-31.0); MEAN CORPUSCULAR HGB CONC 34.4 g/dL (33.0-37.0); MONO # 0.8 K/uL (0.0-0.8); MONO % 7.2 % (0.0-10.0); NEUT # 9.7 K/uL (1.8-7.0); NEUT % 84.1 % (50.0-75.0); PLATELET COUNT 134 K/uL (130-400); RBC 4.44 Mil/uL (4.40-5.90); RED CELL DISTRIBUTION WIDTH 13.7 % (11.5-14.5); WHITE BLOOD COUNT 11.6 K/uL (4.8-10.8)
[2018-09-12 08:01] VITALS: RESP 20
[2018-09-12 08:24] LABS: ALB/GLOB RATIO 1.1 (1.0-2.1); ALBUMIN 3.7 g/dL (3.5-5.0); ALT/SGPT 34 U/L (21-72); AST/SGOT 34 U/L (17-59); BLOOD UREA NITROGEN 6 mg/dL (9-20); CALCIUM 9.5 mg/dl (8.6-10.4); GFR NON-AFRICAN AMERICAN > 60
[2018-09-12] MEDS: Pantoprazole 40 mg EC Tab PO SCH (09:54)
[2018-09-12] MEDS: Saccharomyces Boulardi 250 mg Cap PO SCH ×2 (09:54→17:15)
[2018-09-12] MEDS: Divalproex 500 mg DR Tab PO SCH ×2 (09:54→17:15)
[2018-09-12] MEDS: Enoxaparin 40 mg Syringe SC SCH (09:54)
[2018-09-12 10:46] LABS: BANDS 1 % (0-2); EOSINOPHIL 1 % (0-4); LYMPHOCYTE 8 % (20-40); MONOCYTE 6 % (0-10); NEUTROPHIL 84 % (50-75); PLATELET ESTIMATE NORMAL (NORMAL); TOTAL CELLS COUNTED 100
[2018-09-12 10:47] LABS: OVALOCYTES SLIGHT
--- NOTE | 2018-09-12 11:07 | PCM.EEG ---
Electroencephalogram Report - Electroencephalogram Report Procedure Date: 09/10/18 Medication: tylenol, catapres, depakote, aricept, lovenox, lexapro, namenda, protonix, risperdal, florastor Interpretation: C Technical Information: This was a 16 -channel EEG, 1-channel EKG routine EEG performed using an [employer] machine. Electrodes were applied using the 10/20 international placement system. Start; 9;35 End; 9;59 Total 24 min. linical Information: alter mental status During resting wakefulness there was a symmetric posterior dominant rhythm at 8.5-9.5 Hz, 30-50 uV, which was reactive to eye opening and closing. Drowsiness (9;41) was associated with fragmentation of the posterior dominant rhythm and with slow roving eye movements. Light sleep (9;51) was recorded and was characterized by central vertex waves, sleep spindles, and bilateral theta slowing. Hyperventilation was not performed. Photic stimulation was performed and there were no changes on the record. Focal abnormality; none ECG was associated with a normal sinus rhythm. . Impression: This is a normal awake drowsy and sleep electroencephalogram
[2018-09-12 15:42] VITALS: BP 144/85; PULSE 95; TEMP 98.9
--- NOTE | 2018-09-12 16:41 | CP.PCM.DIS ---
Provider - Provider Date of Admission: 09/05/18 15:02 Attending physician: Lonnie Stephens Jr, MD Consults: 09/05/18 16:08 Case Management Referral Routine Comment: Physician Instructions: Reason For Exam: termination clerk placement; dementia Reason for Referral: Discharge Planning 09/05/18 21:11 Nursing Referral for Palliative Care Routine Comment: Physician Instructions: Reason For Exam: advanced dementia 09/08/18 13:56 Neurology Consult Routine Comment: Consulting Provider: Ramon Kapoor Consulting Physician: Ramon Kapoor Reason for Consult: AMS Time Spent in preparation of Discharge (in minutes): 35 Diagnosis - Discharge Diagnosis (1) HTN (hypertension) Status: Chronic (2) Dementia Status: Chronic (3) Pneumonia Status: Acute Hospital Course - Lab Results Lab Results: Micro Results 09/05/18 15:45 Blood Blood Culture - Final NO GROWTH AFTER 5 DAYS 09/05/18 15:45 Blood Gram Stain - Final TEST NOT PERFORMED 09/05/18 15:15 Blood Blood Culture - Final NO GROWTH AFTER 5 DAYS 09/05/18 15:15 Blood Gram Stain - Final TEST NOT PERFORMED 09/05/18 13:45 Urine Random Urine Culture - Final No Growth (<1,000 CFU/ML) Most Recent Lab Values WBC 11.6 K/uL (4.8-10.8) H 09/12/18 07:43 RBC 4.44 Mil/uL (4.40-5.90) 09/12/18 07:43 Hgb 13.8 g/dL (12.0-18.0) 09/12/18 07:43 Hct 40.1 % (35.0-51.0) 09/12/18 07:43 MCV 90.3 fL (80.0-94.0) 09/12/18 07:43 MCH 31.1 pg (27.0-31.0) H 09/12/18 07:43 MCHC 34.4 g/dL (33.0-37.0) 09/12/18 07:43 RDW 13.7 % (11.5-14.5) 09/12/18 07:43 Plt Count 134 K/uL (130-400) 09/12/18 07:43 MPV 9.0 fL (7.2-11.7) 09/12/18 07:43 Neut % (Auto) 84.1 % (50.0-75.0) H 09/12/18 07:43 Lymph % (Auto) 8.2 % (20.0-40.0) L 09/12/18 07:43 Barnes % (Auto) 7.2 % (0.0-10.0) 09/12/18 07:43 Eos % (Auto) 0.3 % (0.0-4.0) 09/12/18 07:43 Baso % (Auto) 0.2 % (0.0-2.0) 09/12/18 07:43 Neut # (Auto) 9.7 K/uL (1.8-7.0) H 09/12/18 07:43 Lymph # (Auto) 1.0 K/uL (1.0-4.3) 09/12/18 07:43 Barnes # (Auto) 0.8 K/uL (0.0-0.8) 09/12/18 07:43 Eos # (Auto) 0.0 K/uL (0.0-0.7) 09/12/18 07:43 Baso # (Auto) 0.0 K/uL (0.0-0.2) 09/12/18 07:43 Neutrophils % (Manual) 84 % (50-75) H 09/12/18 07:43 Band Neutrophils % 1 % (0-2) 09/12/18 07:43 Lymphocytes % (Manual) 8 % (20-40) L 09/12/18 07:43 Reactive Lymphs % 1 % (0-0) H 09/11/18 11:24 Monocytes % (Manual) 6 % (0-10) 09/12/18 07:43 Eosinophils % (Manual) 1 % (0-4) 09/12/18 07:43 Platelet Estimate Normal (NORMAL) 09/12/18 07:43 RBC Morphology Normal 09/11/18 11:24 Ovalocytes Slight 09/12/18 07:43 PT 12.0 SECONDS (9.7-12.2) 09/05/18 13:45 INR 1.1 09/05/18 13:45 APTT 35.0 SECONDS (21-34) H 09/05/18 13:45 Puncture Site Rb 09/08/18 12:55 pCO2 39 mm/Hg (35-45) 09/08/18 12:55 pO2 98 mm/Hg (80-100) 09/08/18 12:55 HCO3 25.6 mmol/L (21-28) 09/08/18 12:55 ABG pH 7.42 (7.35-7.45) 09/08/18 12:55 ABG Total CO2 26.5 mmol/L (22-28) 09/08/18 12:55 ABG O2 Saturation 99.2 % (95-98) H 09/08/18 12:55 ABG Base Excess 0.8 mmol/L (-2.0-3.0) 09/08/18 12:55 Mitesh Test Na 09/08/18 12:55 ABG Potassium 3.7 mmol/L (3.6-5.2) 09/08/18 12:55 Sodium 137.0 mmol/l (132-148) 09/08/18 12:55 Chloride 107.0 mmol/L (98-107) 09/08/18 12:55 Glucose 81 mg/dl (75-110) 09/08/18 12:55 Lactate 1.0 mmol/L (0.7-2.1) 09/08/18 12:55 Sodium 135 mmol/L (132-148) 09/12/18 07:43 Potassium 3.6 mmol/L (3.6-5.2) 09/12/18 07:43 Chloride 99 mmol/L (98-107) 09/12/18 07:43 Carbon Dioxide 29 mmol/L (22-30) 09/12/18 07:43 Anion Gap 11 (10-20) 09/12/18 07:43 BUN 6 mg/dL (9-20) L 09/12/18 07:43 Creatinine 0.7 mg/dL (0.8-1.5) L 09/12/18 07:43 Est GFR ( Amer) > 60 09/12/18 07:43 Est GFR (Non-Af Amer) > 60 09/12/18 07:43 POC Glucose (mg/dL) 102 mg/dL (65-110) 09/08/18 12:48 Random Glucose 93 mg/dL (75-110) D 09/12/18 07:43 Calcium 9.5 mg/dl (8.6-10.4) 09/12/18 07:43 Phosphorus 3.3 mg/dL (2.5-4.5) 09/12/18 07:43 Magnesium 2.1 mg/dL (1.6-2.3) 09/12/18 07:43 Total Bilirubin 0.6 mg/dL (0.2-1.3) 09/12/18 07:43 AST 34 U/L (17-59) 09/12/18 07:43 ALT 34 U/L (21-72) 09/12/18 07:43 Alkaline Phosphatase 42 U/L (38-126) 09/12/18 07:43 Troponin I < 0.0120 ng/mL (0.00-0.120) 09/05/18 13:45 Total Protein 7.1 g/dL (6.3-8.3) 09/12/18 07:43 Albumin 3.7 g/dL (3.5-5.0) 09/12/18 07:43 Globulin 3.4 gm/dL (2.2-3.9) 09/12/18 07:43 Albumin/Globulin Ratio 1.1 (1.0-2.1) 09/12/18 07:43 Lipase 113 U/L (23-300) 09/05/18 13:45 Prolactin 14.4 ng/mL (3.7-17.9) 09/09/18 08:32 Arterial Blood Potassium 3.7 mmol/L (3.6-5.2) 09/08/18 12:55 Urine Color Yellow (YELLOW) 09/05/18 13:45 Urine Clarity Clear (Clear) 09/05/18 13:45 Urine pH 6.0 (5.0-8.0) 09/05/18 13:45 Ur Specific [place] 1.018 (1.003-1.030) 09/05/18 13:45 Urine Protein Negative mg/dL (NEGATIVE) 09/05/18 13:45 Urine Glucose (UA) Normal mg/dL (Normal) 09/05/18 13:45 Urine Ketones Trace mg/dL (NEGATIVE) 09/05/18 13:45 Urine Blood 1+ (NEGATIVE) H 09/05/18 13:45 Urine Nitrate Negative (NEGATIVE) 09/05/18 13:45 Urine Bilirubin Negative (NEGATIVE) 09/05/18 13:45 Urine Urobilinogen Normal mg/dL (0.2-1.0) 09/05/18 13:45 Ur Leukocyte Esterase Neg Gallito/uL (Negative) 09/05/18 13:45 Urine WBC (Auto) 1 /hpf (0-5) 09/05/18 13:45 Urine RBC (Auto) 9 /hpf (0-3) H 09/05/18 13:45 Ur Squamous Epith Cells < 1 /hpf (0-5) 09/05/18 13:45 Urine Bacteria Rare (<OCC) 09/05/18 13:45 Influenza Typ A,B (EIA) Negative for flu a/b (NEGATIVE) 09/05/18 15:57 - Hospital Course Hospital Course: On admission: This is a 73 year old male with PMHx of Alzheimer's Dementia who is brought in by niece for change in mental status. As per niece, Celi, she was been taking care of her uncle since October 2017. Throughout this time, patient has become more altered, combative, aggressive, he would urinate and defecate on himself and smear it along garcia or on furniture. Both nieces Celina and Celi have tried to have him placed in a intermediate care facility but they have not been able to arrange placement. Patient has been more altered than usual which is why he was brought in. Patient is not oriented to person, place or time. Answered all ROS as negative. Hospital course: CXR showed RLL infiltrate, started on Rocephin and Zithromax. Lactic acid normal, flu negative. On day three of hospitalization, 09/08, pt had a rapid response called due to hypotension and altered mental status. However, pt with alzheimer's dementia at baseline, and was talkative and alert during the rapid response. Seizure suspected, held meds that can decrease seizure threshold (including antibiotics). Received one dose of Narcan IVP to reverse effects of clonidine. EKG showed NSR 69 BPM, LVH, no ST changes, no AV block noted Repeat CXR showed interval improvement of previously noted bibasilar atelectatic and or infiltrates. Head CT showed moderate to significant chronic white matter changes with slight extension of these changes into the white matter tracts of both basal nuclei. Neurology consulted, who ordered EEG. MRI brains howed No acute intracranial abnormality. Pt started on Depakote and ASA was continued. EEG was read as normal awake, drowsy and sleep EED. Pt's mental status is AAOx1 at baseline. Pt is medically stable for transfer to [facility]TC. On discharge interview, pt seen and examined at bedside, resting comfortably. No acute events overnight. Pt is confused at baseline. Denies any acute complaints. Answers no to ROS: Denies fever, chills, chest pain, sob, abdominal pain, n/v/d, hematochezia, melena, urinary complaints. This is a summary of the hospital course. Please see EMR for full details. Discharge Exam - Additional Findings Additional findings: - Constitutional Appears: Non-toxic, No Acute Distress - Head Exam Head Exam: ATRAUMATIC, NORMOCEPHALIC - Eye Exam Eye Exam: EOMI, Normal appearance, PERRL - ENT Exam ENT Exam: Normal Exam - Neck Exam Neck Exam: Full ROM, Normal Inspection - Respiratory Exam Respiratory Exam: Clear to auscultation, NORMAL BREATHING PATTERN, Decreased breath sounds bilaterally may be due to pt being confused at baseline and unable to follow this command properly. absent: Rales, Rhonchi, Wheezes, Respiratory Distress - Cardiovascular Exam Cardiovascular Exam: REGULAR RHYTHM, +S1, +S2 - GI/Abdominal Exam GI & Abdominal Exam: Soft, Normal Bowel Sounds. absent: Firm, Guarding, Rigid, Tenderness, Rebound - Neurological Exam Neurological Exam: Alert, Awake, Moves all extremities spontaneously Awake, alert, oriented x1 (person) - Psychiatric Exam Psychiatric exam: Normal Affect, Normal Mood - Skin Skin Exam: Dry, Normal Color, Warm Discharge Plan - Follow Up Plan Condition: STABLE [facility] Instructions: Pneumonia in Adults Additional Instructions: Patient is cleared for discharge to [facility] Please call Dr. Stephens upon admission for orders. Referrals: Lonnie Stephens Jr., MD [Medical Doctor] -
[2018-09-13 10:31] VITALS: O2SAT 98
== END 2018-09-12 19:54 | DRG 195 ==
LOC: C.ER 11:19 → C.9E 15:02 → C.5S 20:05
PROVIDERS: ADMIT Internal Medicine; ATTEND Internal Medicine
DX: J18.1 Lobar pneumonia, unspecified organism (principal); F02.80 Dementia in other diseases classified elsewhere, unspecified severity, without behavioral disturbance, psychotic disturbance, mood disturbance, and anxiety; G30.9 Alzheimer's disease, unspecified; G40.909 Epilepsy, unspecified, not intractable, without status epilepticus; I10 Essential (primary) hypertension; K21.9 Gastro-esophageal reflux disease without esophagitis; Z85.46 Personal history of malignant neoplasm of prostate; Z87.891 Personal history of nicotine dependence; Z91.81 History of falling